=== PATIENT | female | born 1970 | race Caucasian/White ===

== ENCOUNTER → 2018-01-12 16:34 | Outpatient (CLI) | payer OTHER, SELFPAY ==
[2018-01-12 17:49] LABS: Hematocrit 41.7 % (37-47); Hemoglobin 14.8 g/dl (12.0-15.0); Mean Corp Hgb Conc 35.5 g/gl (32-36); Mean Corpuscular Hgb 30.4 pg (27.0-32.0); Mean Corpuscular Volume 85.6 fL (81-99); Mean Platelet Vol. 9.8 fl (6.2-12.0); Platelet Count 451 K/mm3 (150-450); RBC Distribution Width CV 13.1 % (11.6-14.6); RBC Distribution Width SD 40.5 fl (35.1-43.9); Red Blood Count 4.87 M/mm3 (4.2-5.4); Scan Indicated on CBC? Y/N NO; White Blood Count 8.4 K/mm3 (4.4-11.0)
[2018-01-12 18:07] LABS: Thyroid Stim Hormone (TSH) 1.85 uIU/mL (0.358-3.74)
== END ==
PROVIDERS: Visit Provider Obstetrics & Gynecology
DX: N93.9 Abnormal uterine and vaginal bleeding, unspecified (principal)
CPT/HCPCS: 36415; 84443; 85027

== ENCOUNTER → 2018-02-05 16:28 | Outpatient (CLI) | payer OTHER, SELFPAY ==
[2018-02-13 08:45] LABS: HPV HC, High Risk Negative (Negative)
[2018-02-13 08:47] LABS: HPV Reflexed? YES, CHARGE PATIENT
== END ==
PROVIDERS: Visit Provider Obstetrics & Gynecology
DX: Z12.4 Encounter for screening for malignant neoplasm of cervix (principal)
CPT/HCPCS: 87624; 88175; G0145

== ENCOUNTER → 2018-04-16 10:49 | Outpatient (CLI) | payer OTHER, SELFPAY ==
--- NOTE | 2018-04-16 | BI_ITS ---
MAMMOGRAPHY - BILATERAL SCREENING REASON FOR EXAM: Female, 48 years old. Routine annual screening examination. PERTINENT HISTORY: Non-contributory. TECHNIQUE: Digital bilateral breast joel (3D mammographic acquisition) in the CC and MLO projections. 2-D mediolateral oblique (MLO) and craniocaudad (CC) views of both breasts were obtained. CAD: Full Field Digital Mammography with Computer Added Detection was performed. COMPARISON: Comparison is made with prior study dated June 08, 2014 and May 02, 2013. FINDINGS: Breast Composition: The breasts are heterogeneously dense, which may obscure small masses. There are no dominant masses or suspicious calcifications. No other significant abnormalities are identified. There has been no significant change since the prior study. BI/SCREENING MAMM (CAD), BILAT IMPRESSION: Stable bilateral screening mammogram. Yearly follow-up mammogram recommended. (A) ASSESSMENT CATEGORY: BIRADS Category 1: Negative. A letter regarding these results will be sent to the patient by the facility within 30 days. Approximately 10% of breast cancers are not detected by mammography. A normal mammogram should not delay biopsy of a clinically suspicious abnormality. [id number] Electronically Signed: Abhijeet Franks MD at 8:40 EDT Tel [phone], Service support ,
== END ==
PROVIDERS: Family Provider Family Medicine; PCP Family Medicine; Visit Provider Obstetrics & Gynecology
DX: Z12.31 Encounter for screening mammogram for malignant neoplasm of breast (principal)
CPT/HCPCS: 77063; 77067

== ENCOUNTER → 2018-10-18 16:06 | Outpatient (CLI) | payer OTHER, SELFPAY ==
[2018-10-18 18:12] LABS: Hematocrit 41.6 % (37-47); Hemoglobin 14.3 g/dl (12.0-15.0); Mean Corp Hgb Conc 34.4 g/gl (32-36); Mean Corpuscular Volume 87.2 fL (81-99); Mean Platelet Vol. 9.9 fl (6.2-12.0); Platelet Count 449 K/mm3 (150-450); RBC Distribution Width CV 13.1 % (11.6-14.6); RBC Distribution Width SD 40.9 fl (35.1-43.9); Red Blood Count 4.77 M/mm3 (4.2-5.4); White Blood Count 8.6 K/mm3 (4.4-11.0)
[2018-10-18 18:19] LABS: Scan Indicated on CBC? Y/N NO
[2018-10-18 18:25] LABS: Follicle Stimulating Hormone 18.6 mIU/mL; Thyroid Stim Hormone (TSH) 2.06 uIU/mL (0.358-3.74)
--- OUTSIDE RECORDS SUMMARY | 2019-01-20 08:56 | XMS RPT_ITS ---
:1970 Author Organization OHIP Care Team Providers Name Role Phone STEPHIE PITTS (TURNER MACHINE OPERATOR) Attending Unavailable KENDALL CUNHA III Attending Unavailable DEBRA ZHOU (GASKET MAKER) Attending Unavailable STEPHIE PITTS (TURNER MACHINE OPERATOR) Referring Unavailable STEPHIE PITTS (TURNER MACHINE OPERATOR) Attending Unavailable KENDALL CUNHA III Referring Unavailable STEPHIE PITTS (TURNER MACHINE OPERATOR) Referring Unavailable Leah Contreras Attending Unavailable Leah Contreras Attending Unavailable Leah Contreras Attending Unavailable Leah Contreras Attending Unavailable Kendall Cunha III Primary Care Unavailable PROBLEMS PROBLEMS DATE TYPE CONDITION / CODE ATTENDING STATUS SOURCE 10/18/2018 Unknown N92.4 - Excessive Leah Contreras Active [facility] bleeding in the Community premenopausal Hospital period / Repository N92.4(ICD-10) 10/18/2018 Unknown N92.6 - Irregular Leah Contreras Active [facility] menstruation, Community unspecified / Hospital N92.6(ICD-10) Repository 04/16/2018 Active Cough / R05(ICD-10) NA Active [facility] [place] Repository 04/16/2018 Active Glycosuria / NA Active [facility] R81(ICD-10) [facility] [place] Repository 02/05/2018 Unknown Z12.4 - Encounter Leah Contreras Active [facility] for screening for Community malignant neoplasm Hospital of cervix / Repository Z12.4(ICD-10) 2018 Unknown N93.9 - Abnormal Leah Contreras Active [facility] uterine and vaginal Community bleeding, Hospital unspecified / Repository N93.9(ICD-10) PROCEDURES PROCEDURES No Procedure Records FoundRESULTS RESULTS CBC-COMPLETE BLOOD CNT Collected: 10/18/2018 Status: F Source: [place] NO DIFF 4:10 PM [facility] TYPE CODE TESTS RESULT OUT OF RANGE REFERENCE UNITS LAB L100.1000 4.4-11.0 K/mm3 Normal WBC 8.6 LAB L100.1200 4.2-5.4 M/mm3 Normal RBC 4.77 LAB L100.1300 12.0-15.0 g/dl Normal HGB 14.3 LAB L100.1400 37-47 % Normal HCT 41.6 LAB L100.1500 81-99 fL Normal MCV 87.2 LAB L100.1600 27.0-32.0 pg Normal MCH 30.0 LAB L100.1700 32-36 g/gl Normal MCHC 34.4 LAB L100.1810 11.6-14.6 % Normal RDW CV 13.1 LAB L100.1820 35.1-43.9 fl Normal RDW SD 40.9 LAB L100.1900 150-450 K/mm3 Normal PLT 449 LAB L100.2000 6.2-12.0 fl Normal MPV 9.9 Performed By: #### L100.0500 #### [facility] [address] [place], [address] THYROID STIM HORMONE Collected: 10/18/2018 Status: F Source: [place] (TSH) 4:10 PM [facility] REPOSITORY TYPE CODE TESTS RESULT OUT OF RANGE REFERENCE UNITS LAB L501.9520 0.358-3.74 uIU/mL Normal TSH 2.06 Performed By: #### L501.9520, L3100.5125 #### [facility] [address] [place], [address] FOLLICLE STIMULATING Collected: 10/18/2018 Status: F Source: [place] HORMONE 4:10 PM [facility] REPOSITORY TYPE CODE TESTS RESULT OUT OF RANGE REFERENCE UNITS LAB L3100.5125 mIU/mL Normal FSH 18.6 Result Comment: NORMAL REFERENCE RANGES FEMALE FOLLICULAR 2.3 - 12.6 mIU/mL MID-CYCLE PEAK 5.2 - 17.5 mIU/mL LUTEAL 1.7 - 12.9 mIU/mL POST-MENOPAUSAL ON MHT 5.9 - 72.8 mIU/mL NOT ON MHT 12.7 - 132.2 mlU/mL MALE 0.7 - 10.8 mIU/mL NEW TEST METHOD AND REFERENCE RANGES MARCH 22, 2012 Performed By: #### L501.9520, L3100.5125 #### [facility] [address] [place], [address] XR CHEST 2V FRONTAL/LAT Observed: 04/16/2018 Status: F Source: [place] 2:30 PM [facility] REPOSITORY * * *Final Report* * * DATE OF EXAM: Apr 16 2018 2:30PM [id number] [id number] - XR CHEST 2V FRONTAL/LAT / PROCEDURE REASON: Cough * * * * Physician Interpretation * * * * EXAMINATION: CHEST RADIOGRAPH (2 VIEW FRONTAL and LATERAL) Clinical History: Cough MQ: XC2_5 Comparison: RESULT: Lines, tubes, and devices: None. Lungs and pleura: No consolidation. No lung mass. No pleural effusion. Cardiomediastinal silhouette: Normal cardiomediastinal silhouette. Other: . IMPRESSION: No acute radiographic abnormality. Mapping Editor: PSCB Transcribe Date/Time: Apr 16 2018 4:46P Dictated by : ZAYNAB BEAN MD This examination was interpreted and the report reviewed and electronically signed by: ZAYNAB BEAN MD on Apr 16 2018 4:46PM EST [id number] Observed: 04/16/2018 Status: COMPLETED Source: [place] 2:19 PM [facility] REPOSITORY HNO ID: [id number] Author: Leslee Huang Service: (none) Author Type: (none) Type: Progress Notes Filed: 04/16/2018 2:30 PM Note Text: Radiology Service Progress Note PATIENT NAME: Kitty Rodney DATE OF SERVICE: April 16, 2018 TIME: 2:19 PM PATIENT IDENTITY VERIFICATION COMPLETED USING TWO (2) METHODS: Patient confirmed name verbally and Date of . PATIENT GENDER DATA: Female. status: : No status: NO. PATIENT RELEVANT IMPLANT DATA REVIEWED: Not Applicable RADIOLOGY DEPARTMENT: General X-ray: Exam(s) Completed: Chest X-Ray PERIPHERAL IV DATA: Not applicable SIGNED BY: Leslee Huang April 16, 2018 2:19 PM PROGRESS Observed: 04/16/2018 Status: COMPLETED Source: [place] 1:31 PM [facility] REPOSITORY HNO ID: [id number] Author: Stephie Leslie (Scott Pitts Service: (none) Author Type: Nurse Practitioner Type: Progress Notes Filed: 04/16/2018 1:53 PM Note Text: Chief Complaint Patient presents with: Recheck: had glucose in urine at Urgent Care HPI Kitty Rodney is a 48 year old female who presents here today for Above Complaints. Seen 03/26/18 for possible UTI, urine dip that day showed Glucose in urine. POC fingerstick non-fasting was 145. She has had fasting labs done this morning, results still pending. She denies any polyuria/polydipsia. Recalls day of UC visit poor choices of foods. Denies h/o elevated blood sugar. Also notes ongoing cough. Dry, rarely productive-clear mucus.. Onset 4 months ago, happens every year. Started with URI at onset, no lingering cough. Usually has lingering cough, typically gone by now. Some PND, no significant rhinorrhea. She notes + GERD sx and denies any wheezing. + cough typically with cold weather or with exercise. No formal DX of asthma. Not treated. The ROS is otherwise negative. Past medical history, appointments, medications, allergies reviewed. Patient Allergies ALLERGIES Allergen Reactions - Cipro [Ciprofloxaci* Hives - Sulfa (Sulfonamide * Hives Current Medications Current Outpatient Prescriptions on File Prior to Visit: acetaminophen 325 mg-caffeine 40 mg-butalbital 50 mg (FIORICET) per tablet Take 1 tablet by mouth every 6 hrs . as needed for migraine headache tiZANidine (ZANAFLEX) 4 mg tablet Take 0.5 tablets by mouth every 6 hours as needed (muscle spasms). predniSONE (DELTASONE) 20 mg tablet Take 1 tablet by mouth once daily. buPROPion XL (WELLBUTRIN XL) 150 mg 24 hr tablet Take 1 tablet by mouth once daily. No current facility-administered medications on file prior to visit. Previous Medical History PAST MEDICAL HISTORY Diagnosis Date - Dysthymic disorder 1996 Depression (non-psychotic)/ANXIETY - Exercise-induced asthma 09/21/2015 - Female infertility of unspecified origin 2007 Female infertility - Migraine headache 01/10/2011 - Migraine with aura and without status migrainosus, not intractable 09/21/2015 - Personal history of urinary (tract) infection - Personal history of urinary calculi - Rosacea 07/23/2011 - Unspecified asthma(493.90) EXERCISE INDUCED - Variants of migraine, not elsewhere classified, with intractable migraine, so stated, without mention of status migrainosus Previous Surgical History PAST SURGICAL HISTORY Procedure Laterality Date - DELIVERY ONLY 08/2009 , low transverse - EGD W/O BRSH SPECIMEN W/BX 12/12/2016 - G-ESOPH REFLX TST W/ELECTROD 12/12/2016 - HYSTEROSALPINGOGRAM CATHANDINSTILL Family History FAMILY HISTORY Problem Relation Age of Onset - Lipids Mother High Cholesterol - Diabetes Father - Stroke Father - Heart Maternal Grandmother - Stroke Maternal Grandmother - Diabetes Paternal Grandmother - Stroke Paternal Grandfather - Cancer Maternal Aunt BONE CANCER Social History Social History Marital status: Spouse name: Leonid Years of education: 16 Number of children: 1 Occupational History 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 Nose/Sinuses: Nares normal, septum midline, mucosa normal, no drainage or sinus tenderness. Oropharynx: Lips, mucosa, and tongue normal, teeth and gums normal, oropharynx normal. Neck: Supple, no adenopathy; thyroid symmetric, normal size, no bruits. Lungs: Lungs clear to auscultation. No wheezing, rhonchi, rales. Heart: RRR without murmur, gallop, or rubs. No ectopy. Component Latest Ref Rng AND Units 04/16/2018 Glucose, Urine Neg mg/dL neg Bilirubin, Urine Neg neg Ketones, Urine Neg neg Specific [place], Ur 1.005 - 1.030 1.010 Hemoglobin/Blood,Ur Neg large pH, Urine 4.5 - 8.0 7.0 Protein, Urine Neg mg/dL trace Urobilinogen, Urine Normal (<1.1) EU normal Nitrites Neg neg Leukocytes Neg neg Color/Appearance comment: yellow/clear Quality Check yes/no Yes ASSESSMENT/PLAN: 1. Glucosuria - ICD9: 791.5, ICD10: R81 (primary diagnosis) Reviewed diagnostic criteria for DM. Will await lab results and notify when available and be guided by results. Recommend healthy diet, low starchy vegetables, lean protein sources - UA DIP B/O 2. Cough - ICD9: 786.2, ICD10: R05 -Meantime recommend Loratidine 10 mg daily. - XR CHEST 2V FRONTAL/LAT Stephie Pitts, MSN BRANCH LIBRARY CLERK.GASKET MAKER CNOV Observed: 04/16/2018 Status: COMPLETED Source: [place] 1:20 PM [facility] REPOSITORY Office Visit (FAMPWS) KITTY SAMAYOA ([id number]) 1970 F Date Time Provider Department 04/16/18 1:20 PM STEPHIE PITTS (TURNER MACHINE OPERATOR) RUFINOPWS During your visit today, we recorded the following information about you: Temperature Pulse Respiration Blood pressure 98.3 degrees 88/minute 18/minute 118/80 Last Period 04/11/18 Stephie Pitts, MSN BRANCH LIBRARY CLERK.GASKET MAKER 04/16/2018 1:53 PM Signed Chief Complaint Patient presents with: Recheck: had glucose in urine at Urgent Care HPI Kitty Rodney is a 48 year old female who presents here today for Above Complaints. Seen 03/26/18 UC for possible UTI, urine dip that day showed Glucose in urine. POC fingerstick non-fasting was 145. She has had fasting labs done this morning, results still pending. She denies any polyuria/polydipsia. Recalls day of UC visit poor choices of foods. Denies h/o elevated blood sugar. Also notes ongoing cough. Dry, rarely productive-clear mucus.. Onset 4 months ago, happens every year. Started with URI at onset, no lingering cough. Usually has lingering cough, typically gone by now. Some PND, no significant rhinorrhea. She notes + GERD sx and denies any wheezing. + cough typically with cold weather or with exercise. No formal DX of asthma. Not treated. The ROS is otherwise negative. Past medical history, appointments, medications, allergies reviewed. Patient Allergies ALLERGIES Allergen Reactions - Cipro [Ciprofloxaci* Hives - Sulfa (Sulfonamide * Hives Current Medications Current Outpatient Prescriptions on File Prior to Visit: acetaminophen 325 mg-caffeine 40 mg-butalbital 50 mg (FIORICET) per tablet Take 1 tablet by mouth every 6 hrs . as needed for migraine headache tiZANidine (ZANAFLEX) 4 mg tablet Take 0.5 tablets by mouth every 6 hours as needed (muscle spasms). predniSONE (DELTASONE) 20 mg tablet Take 1 tablet by mouth once daily. buPROPion XL (WELLBUTRIN XL) 150 mg 24 hr tablet Take 1 tablet by mouth once daily. No current facility-administered medications on file prior to visit. Previous Medical History PAST MEDICAL HISTORY Diagnosis Date - Dysthymic disorder 1996 Depression (non-psychotic)/ANXIETY - Exercise-induced asthma 09/21/2015 - Female infertility of unspecified origin 2007 Female infertility - Migraine headache 01/10/2011 - Migraine with aura and without status migrainosus, not intractable 09/21/2015 - Personal history of urinary (tract) infection - Personal history of urinary calculi - Rosacea 07/23/2011 - Unspecified asthma(493.90) EXERCISE INDUCED - Variants of migraine, not elsewhere classified, with intractable migraine, so stated, without mention of status migrainosus Previous Surgical History PAST SURGICAL HISTORY Procedure Laterality Date - DELIVERY ONLY 08/2009 , low transverse - EGD W/O BRSH SPECIMEN W/BX 12/12/2016 - G-ESOPH REFLX TST W/ELECTROD 12/12/2016 - HYSTEROSALPINGOGRAM CATHANDINSTILL Family History FAMILY HISTORY Problem Relation Age of Onset - Lipids Mother High Cholesterol - Diabetes Father - Stroke Father - Heart Maternal Grandmother - Stroke Maternal Grandmother - Diabetes Paternal Grandmother - Stroke Paternal Grandfather - Cancer Maternal Aunt BONE CANCER Social History Social History Marital status: Spouse name: Leonid Years of education: 16 Number of children: 1 Occupational History 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 Nose/Sinuses: Nares normal, septum midline, mucosa normal, no drainage or sinus tenderness. Oropharynx: Lips, mucosa, and tongue normal, teeth and gums normal, oropharynx normal. Neck: Supple, no adenopathy; thyroid symmetric, normal size, no bruits. Lungs: Lungs clear to auscultation. No wheezing, rhonchi, rales. Heart: RRR without murmur, gallop, or rubs. No ectopy. Component Latest Ref Rng AND Units 04/16/2018 Glucose, Urine Neg mg/dL neg Bilirubin, Urine Neg neg Ketones, Urine Neg neg Specific [place], Ur 1.005 - 1.030 1.010 Hemoglobin/Blood,Ur Neg large pH, Urine 4.5 - 8.0 7.0 Protein, Urine Neg mg/dL trace Urobilinogen, Urine Normal (<1.1) EU normal Nitrites Neg neg Leukocytes Neg neg Color/Appearance comment: yellow/clear Quality Check yes/no Yes ASSESSMENT/PLAN: 1. Glucosuria - ICD9: 791.5, ICD10: R81 (primary diagnosis) Reviewed diagnostic criteria for DM. Will await lab results and notify when available and be guided by results. Recommend healthy diet, low starchy vegetables, lean protein sources - UA DIP B/O 2. Cough - ICD9: 786.2, ICD10: R05 -Meantime recommend Loratidine 10 mg daily. - XR CHEST 2V FRONTAL/LAT Stephie Pitts, MSN BRANCH LIBRARY CLERK.GASKET MAKER Stephie Pitts, MSN BRANCH LIBRARY CLERK.GASKET MAKER 04/16/2018 1:49 PM Signed 1. Recommend Loratidine 10 mg daily. Referring Provider: KENDALL CUNHA III [[id number]] Allergies As of Date: 04/16/2018 Noted Allergy Reaction CIPRO (CIPROFLOXACIN) 08/11/2005 4 - Hives SULFA (SULFONAMIDE ANTIBIOTICS) 08/11/2005 4 - Hives Date Reviewed: 04/16/2018 Reviewed by: Kenyetta Jamil LPN - Fully Assessed Reason for Visit: Recheck [92] Cmt: had glucose in urine at Urgent Care Primary Visit Diagnosis:Glucosuria [R81] Other Visit Diagnosis:Cough [R05] Order(s):UA DIP B/O [[id number]] Order #: [id number] XR CHEST 2V FRONTAL/LAT [[id number]] Order #: [id number] FUTURE Prescriptions as of 04/16/2018 Sig: [id number]* Take 1 tablet by mouth every * Medication notes this encounter BUPROPION XL 150 MG TAB >> Stephie Pitts, MSN BRANCH LIBRARY CLERK.GASKET MAKER 04/16/2018 1:45 PM very irritable Problem List As Of Date 04/16/2018 Noted Resolved DYSMETABOLIC SYNDROME X [E88.81] INVALID FOR* GENERALIZED ANXIETY DIS [F41.1] INVALID FOR* Sprain and strain of unspecified site of should*INVALID FOR*09/21/2015 Pain in joint, lower leg [M25.569] INVALID FOR*09/21/2015 Supervision of other normal [Z34.80] INVALID FOR*09/21/2015 Elderly multigravida with antepartum condition *INVALID FOR*09/21/2015 Threatened , antepartum [O20.0] INVALID FOR*09/21/2015 Rosacea [L71.9] INVALID FOR*09/21/2015 Fracture of 5th metatarsal [S92.353A] INVALID FOR*09/21/2015 Neck pain [M54.2] INVALID FOR*09/21/2015 More... Migraine with aura and without status migrainos*INVALID FOR* Exercise-induced asthma [J45.990] INVALID FOR* Odynophagia [R13.10] INVALID FOR* Anxiety and depression [F41.9, F32.9] INVALID FOR* Other instructions from your clinician: 1. Recommend Loratidine 10 mg daily. Medications Discontinued During This Encounter tiZANidine (ZANAFLEX) 4 mg tablet 30 t* 0 02/03/2018 04/16/2018 Route: ORAL Sig: Take 0.5 tablets by mouth every 6 hours as needed (muscle spasms). Disc: Course of therapy completed predniSONE (DELTASONE) 20 mg tablet 5 ta* 0 02/03/2018 04/16/2018 Route: ORAL Sig: Take 1 tablet by mouth once daily. Disc: Course of therapy completed buPROPion XL (WELLBUTRIN XL) 150 mg * 30 t* 11 12/21/2017 04/16/2018 Route: ORAL Sig: Take 1 tablet by mouth once daily. Disc: Discontinued by Patient Disposition: Return if symptoms worsen or fail to improve. Follow-up and Disposition History Recorded Encounter Status:Closed by STEPHIE PTITS CNP on 04/16/18 SCREENING MAMM (CAD), Observed: 04/16/2018 Status: F Source: [place] 10:52 AM [facility] REPOSITORY [facility] Imaging Services [address] [place] [id number] SCREENING MAMM (CAD), BILAT MR#: [id number] Acct: [id number] Name: KITTY SAMAYOA Rep #: [id number] : 1970 F 48 From: Abhijeet Franks MD PCP: Kendall Cunha III, MD Status: REG CLI Study: SCREENING MAMM (CAD), BILAT Date of Exam: 04/16/18 Exam# [id number] Ordering Dr: Leah Contreras MD MAMMOGRAPHY - BILATERAL SCREENING REASON FOR EXAM: Female, 48 years old. Routine annual screening examination. PERTINENT HISTORY: Non-contributory. TECHNIQUE: Digital bilateral breast joel (3D mammographic acquisition) in the CC and MLO projections. 2-D mediolateral oblique (MLO) and craniocaudad (CC) views of both breasts were obtained. CAD: Full Field Digital Mammography with Computer Added Detection was performed. COMPARISON: Comparison is made with prior study dated June 08, 2014 and May 02, 2013. FINDINGS: Breast Composition: The breasts are heterogeneously dense, which may obscure small masses. There are no dominant masses or suspicious calcifications. No other significant abnormalities are identified. There has been no significant change since the prior study. BI/SCREENING MAMM (CAD), BILAT IMPRESSION: Stable bilateral screening mammogram. Yearly follow-up mammogram recommended. (A) ASSESSMENT CATEGORY: BIRADS Category 1: Negative. A letter regarding these results will be sent to the patient by the facility within 30 days. Approximately 10% of breast cancers are not detected by mammography. A normal mammogram should not delay biopsy of a clinically suspicious abnormality. [id number] Electronically Signed: Abhijeet Franks MD at 8:40 EDT Tel [phone], Service support , CC: Leah Contreras MD; Kendall Cunha III, MD Mapping Editor: Signed COMP METABOLIC PANEL Collected: 04/16/2018 Status: F Source: [place] 10:16 AM [facility] REPOSITORY TYPE CODE TESTS RESULT OUT OF REFERENCE UNITS RANGE LAB TP 6.3-8.0 g/dL Low Protein, Total 5.8 LAB ALB 3.9-4.9 g/dL Albumin 4.0 LAB CA 8.5-10.2 mg/dL Calcium, Total 9.2 LAB TBIL 0.2-1.3 mg/dL Bilirubin, Total 0.4 LAB ALKP 32-117 U/L Alkaline Phosphatase 69 LAB AST 13-35 U/L AST 21 LAB GLU 74-99 mg/dL Glucose High 100 Result Comment: The [place] Diabetes Association (ADA) provides guidance for cutoff values for fasting glucose and random glucose. The ADA defines fasting as no caloric intake for at least 8 hours. Fas ting plasma glucose results between 100 to 125 mg/dL indicate increased risk for diabetes (prediabetes). Fasting plasma glucose results greater than or equal to 126 mg/dL meet the criteria for diagnosis of diabetes. In the absence of unequivocal hyperglycemia, results should be confirmed by repeat testing. In a patient with classic symptoms of hyperglycemia or hyperglycemic crisis, random plasma glucose results greater than or equal to 200 mg/dL meet the criteria for diagnosis of diabetes. Reference: Standards of Medical Care in Diabetes 2016, [place] Diabetes Association. Diabetes Care. 2016.39(Suppl 1). LAB BUN 7-21 mg/dL BUN 14 LAB CRET 0.58-0.96 mg/dL Creatinine 0.77 LAB NA 136-144 mmol/L Sodium 140 LAB K 3.7-5.1 mmol/L Potassium 4.0 LAB CL 97-105 mmol/L Chloride 103 LAB CO2 22-30 mmol/L CO2 25 LAB AGAP 9-18 mmol/L Anion Gap 12 LAB ALT 7-38 U/L ALT 12 LAB GFRAA eGFR- Amer. >60 LAB GFRNAA . eGFR-All Other Races >60 Result Comment: eGFR (Estimated GFR) Units of measure: mL/min/1.73 meters squared eGFR is derived from the reexpressed MDRD Study equation using the following parameters: serum creatinine, age, gender and race. The creatinine assay has been calibrated to be traceable to IDMS. An eGFR <60 mL/min/1.73m2 for >3 months is consistent with chronic kidney disease. Refer to KDOQI guidelines for clinical interpretation. In patients with unstable renal function, e.g. those with acute kidney injury, the eGFR may not accurately reflect actual GFR. Performed By: #### CMP, LIPB, TSH, HBA1C #### [facility] [address] [place], [place] [address] LIPID PANEL, BASIC Collected: 04/16/2018 Status: F Source: [place] 10:16 AM [facility] REPOSITORY TYPE CODE TESTS RESULT OUT OF REFERENCE UNITS RANGE LAB CHOL <200 mg/dL Cholesterol 176 Result Comment: <200 mg/dL, Desirable 200-239 mg/dL, Borderline high >239 mg/dL, High LAB TRIGLY <150 mg/dL Triglyceride 117 Result Comment: <150 mg/dL, Normal 150-199 mg/dL, Borderline high 200-499 mg/dL, High >499 mg/dL, Very high LAB HDL >39 mg/dL HDL-Cholesterol 50 Result Comment: 40-59 mg/dL, Acceptable >59 mg/dL, High: Negative risk factor for coronary heart disease <40 mg/dL, Low: Positive risk factor for coronary heart disease LAB LDL <100 mg/dL LDL-Cholesterol High 103 Result Comment: <100 mg/dL, Optimal 100-129 mg/dL, Near optimal/above optimal 130-159 mg/dL, Borderline high 160-189 mg/dL, High >189 mg/dL, Very high Secondary prevention optimal LDL Cholesterol levels are recommended to be < 70 mg/dL LAB NONHDL <130 mg/dL Non HDL Cholesterol 126 Result Comment: <130 mg/dL, Optimal 130-159 mg/dL, Near optimal/above optimal 160-189 mg/dL, Borderline high 190-219 mg/dL, High >219 mg/dL, Very high Secondary prevention optimal non HDL Cholesterol levels are recommended to be < 100 mg/dL LAB FT hrs Fasting Time 14 LAB VLDL <30 mg/dL VLDL Cholesterol 23 LAB TCHDL <5.10 TC:HDL Ratio 3.52 LAB LDLHDL <2.54 LDL:HDL Ratio 2.06 Result Comment: Reference: 1. National Cholesterol Education Program ATP III Guideline At-A-Glance Quick Desk Reference: National Heart, Lung, and Blood [place]. National Institutes of Health. 2001: NIH Publication No. 01-3305. 2. An International Atherosclerosis Society position paper: global recommendations for the management of dyslipidemia: executive summary, Atherosclerosis. 2014: 232(2):410-413. Performed By: #### CMP, LIPB, TSH, HBA1C #### [facility] [address] [place], [place] [address] TSH Collected: 04/16/2018 Status: F Source: [place] 10:16 AM [facility] REPOSITORY TYPE CODE TESTS RESULT OUT OF RANGE REFERENCE UNITS LAB TSH 0.400-5.500 uU/mL TSH 2.130 Result Comment: If the patient is , TSH reference range varies by gestational period: First Trimester 0.100-2.500 uU/mL Second Trimester 0.200-3.000 uU/mL Third Trimester 0.300-3.000 uU/mL References: 1. Stewart L, Carlos M, Raúl EK, et al. Management of Thyroid Dysfunction during and : An Endocrine Society Clinical Practice Guideline. J Clin Endocrinol Metab, 2012:97:2917-1056. 2. Aniket OJEDA. Overview of thyroid disease in . UpToDate. 2016. Accessed on April 18, 2016. Performed By: #### CMP, LIPB, TSH, HBA1C #### [facility] [address], [place] [address] HEMOGLOBIN A1C Collected: 04/16/2018 Status: F Source: [place] 10:16 AM [facility] REPOSITORY TYPE CODE TESTS RESULT OUT OF REFERENCE UNITS RANGE LAB HGBA1C 4.3-5.6 % Hemoglobin A1c 5.3 LAB HBA0 mg/dL Est. Average Glucose 105 Result Comment: eAG: (Estimated average glucose) is a calculated value from HgbA1c and is new accounts banking representative of the average blood glucose level in the last 2-3 month period. Performed By: #### CMP, LIPB, TSH, HBA1C #### [facility] [address], [place] [id number] Observed: 03/26/2018 Status: F Source: [place] URINE CULTURE 6:25 PM [facility] REPOSITORY Sp. Request/Comment: - Best Practice Alert: To ensure optimal transport conditions and accurate culture results transfer urine specimens to thacker top C and S preservative tube. Culture Result - <10,000 CFU/ml Lactose negative gram negative bacilli --> ABNORMAL ALERT Insignificant colony count. No further workup. --> ABNORMAL ALERT 10,000 - <50,000 CFU/ml Normal urogenital angela Performed By: #### URCUL #### [facility] [address] [place], [place] [address] PROGRESS Observed: 03/26/2018 Status: COMPLETED Source: [place] 5:51 PM [facility] REPOSITORY HNO ID: [id number] Author: Suzie (Mo) Service: (none) Author Type: Nurse Practitioner Type: Progress Notes Filed: 03/26/2018 6:34 PM Note Text: Subjective HPI HPI Kitty Rodney is a 48 year old female who presents today for CC of urinary burning, urgency. This started 4 days ago. Has tried nothing nothing. Symptoms are worsened by nothing. Risk factors hx of uti's. .Patient presents with: UTI PAST MEDICAL HISTORY Diagnosis Date - Dysthymic disorder 1996 Depression (non-psychotic)/ANXIETY - Exercise-induced asthma 09/21/2015 - Female infertility of unspecified origin 2007 Female infertility - Migraine headache 01/10/2011 - Migraine with aura and without status migrainosus, not intractable 09/21/2015 - Personal history of urinary (tract) infection - Personal history of urinary calculi - Rosacea 07/23/2011 - Unspecified asthma(493.90) EXERCISE INDUCED - Variants of migraine, not elsewhere classified, with intractable migraine, so stated, without mention of status migrainosus PAST SURGICAL HISTORY Procedure Laterality Date - DELIVERY ONLY 08/2009 , low transverse - [facility]X 12/12/2016 - G-ESOPH REFLX TST W/ELECTROD 12/12/2016 - HYSTEROSALPINGOGRAM CATHANDINSTILL ALLERGIES Cipro [Ciprofloxacin]; Sulfa (Sulfonamide Antibiotics) MEDICATIONS tiZANidine (ZANAFLEX) 4 mg tablet Take 0.5 tablets by mouth every 6 hours as needed (muscle spasms). predniSONE (DELTASONE) 20 mg tablet Take 1 tablet by mouth once daily. buPROPion XL (WELLBUTRIN XL) 150 mg 24 hr tablet Take 1 tablet by mouth once daily. acetaminophen 325 mg-caffeine 40 mg-butalbital 50 mg (FIORICET) per tablet Take 1 tablet by mouth every 6 hrs . as needed for migraine headache FAMILY HISTORY Problem Relation Age of Onset - Lipids Mother High Cholesterol - Diabetes Father - Stroke Father - Heart Maternal Grandmother - Stroke Maternal Grandmother - Diabetes Paternal Grandmother - Stroke Paternal Grandfather - Cancer Maternal Aunt BONE CANCER Social History Substance Use Topics - Smoking status: Never Smoker - Smokeless tobacco: Never Used - Alcohol use No Review of Systems Constitutional: Negative for chills, fever and weight loss. Respiratory: Negative for cough, shortness of breath and wheezing. Cardiovascular: Negative for chest pain and palpitations. Gastrointestinal: Negative for abdominal pain, blood in stool, constipation, diarrhea, heartburn, melena, nausea and vomiting. Genitourinary: Positive for dysuria, frequency and urgency. Negative for flank pain and hematuria. Objective Blood pressure 110/72, pulse 84, temperature 36.4 ?C (97.6 ?F), temperature source Left Tympanic, resp. rate 18. Physical Exam Constitutional: She is well-developed, well-nourished, and in no distress. Non-toxic appearance. She does not have a sickly appearance. No distress. Cardiovascular: Normal rate, regular rhythm and normal heart sounds. Pulmonary/Chest: Effort normal and breath sounds normal. Abdominal: Soft. Normal appearance and bowel sounds are normal. There is no hepatosplenomegaly. There is no tenderness. There is no CVA tenderness. Skin: Skin is warm and dry. ASSESSMENT/PLAN: 1. Dysuria - ICD9: 788.1, ICD10: R30.0 (primary diagnosis) acute - Send urine for culture, will call results and treat if indicated -push fluids - UA DIP B/O - URINE CULTURE 2. Glucosuria - ICD9: 791.5, ICD10: R81 -schedule follow up with primary care next week -discussed concerns for insulin resistance, strongly encouraged f/u with pcp. -Random glucose 145 Prescription instructions reviewed with patient as applicable. Patient advised if symptoms do not improve or if symptoms worsen sooner, to contact the office for further evaluation by their primary care physician. Potential red flag symptoms discussed with the patient. Reviewed appropriate action plan to take if red flag symptoms occur. Patient agreeable to treatment plan. Suzie Cano APRN.CNP CNOV Observed: 03/26/2018 Status: COMPLETED Source: [place] 5:45 PM [facility] REPOSITORY Office Visit ([facility]) DINA RODNEYKITTY D ([id number]) 1970 F Date Time Provider Department 03/26/18 5:45 PM SUZIE CANO (MO) [facility] During your visit today, we recorded the following information about you: Temperature Pulse Respiration Blood pressure 97.6 degrees 84/minute 18/minute 110/72 Suzie Cano APRN.CNP 03/26/2018 6:34 PM Signed Subjective HPI HPI Kitty Rodney is a 48 year old female who presents today for CC of urinary burning, urgency. This started 4 days ago. Has tried nothing nothing. Symptoms are worsened by nothing. Risk factors hx of uti's. .Patient presents with: UTI PAST MEDICAL HISTORY Diagnosis Date - Dysthymic disorder 1996 Depression (non-psychotic)/ANXIETY - Exercise-induced asthma 09/21/2015 - Female infertility of unspecified origin 2007 Female infertility - Migraine headache 01/10/2011 - Migraine with aura and without status migrainosus, not intractable 09/21/2015 - Personal history of urinary (tract) infection - Personal history of urinary calculi - Rosacea 07/23/2011 - Unspecified asthma(493.90) EXERCISE INDUCED - Variants of migraine, not elsewhere classified, with intractable migraine, so stated, without mention of status migrainosus PAST SURGICAL HISTORY Procedure Laterality Date - DELIVERY ONLY 08/2009 , low transverse - EGD W/O [facility] SPECIMEN W/BX 12/12/2016 - G-ESOPH REFLX TST W/ELECTROD 12/12/2016 - HYSTEROSALPINGOGRAM CATHANDINSTILL ALLERGIES Cipro [Ciprofloxacin]; Sulfa (Sulfonamide Antibiotics) MEDICATIONS tiZANidine (ZANAFLEX) 4 mg tablet Take 0.5 tablets by mouth every 6 hours as needed (muscle spasms). predniSONE (DELTASONE) 20 mg tablet Take 1 tablet by mouth once daily. buPROPion XL (WELLBUTRIN XL) 150 mg 24 hr tablet Take 1 tablet by mouth once daily. acetaminophen 325 mg-caffeine 40 mg-butalbital 50 mg (FIORICET) per tablet Take 1 tablet by mouth every 6 hrs . as needed for migraine headache FAMILY HISTORY Problem Relation Age of Onset - Lipids Mother High Cholesterol - Diabetes Father - Stroke Father - Heart Maternal Grandmother - Stroke Maternal Grandmother - Diabetes Paternal Grandmother - Stroke Paternal Grandfather - Cancer Maternal Aunt BONE CANCER Social History Substance Use Topics - Smoking status: Never Smoker - Smokeless tobacco: Never Used - Alcohol use No Review of Systems Constitutional: Negative for chills, fever and weight loss. Respiratory: Negative for cough, shortness of breath and wheezing. Cardiovascular: Negative for chest pain and palpitations. Gastrointestinal: Negative for abdominal pain, blood in stool, constipation, diarrhea, heartburn, melena, nausea and vomiting. Genitourinary: Positive for dysuria, frequency and urgency. Negative for flank pain and hematuria. Objective Blood pressure 110/72, pulse 84, temperature 36.4 ?C (97.6 ?F), temperature source Left Tympanic, resp. rate 18. Physical Exam Constitutional: She is well-developed, well-nourished, and in no distress. Non-toxic appearance. She does not have a sickly appearance. No distress. Cardiovascular: Normal rate, regular rhythm and normal heart sounds. Pulmonary/Chest: Effort normal and breath sounds normal. Abdominal: Soft. Normal appearance and bowel sounds are normal. There is no hepatosplenomegaly. There is no tenderness. There is no CVA tenderness. Skin: Skin is warm and dry. ASSESSMENT/PLAN: 1. Dysuria - ICD9: 788.1, ICD10: R30.0 (primary diagnosis) acute - Send urine for culture, will call results and treat if indicated -push fluids - UA DIP B/O - URINE CULTURE 2. Glucosuria - ICD9: 791.5, ICD10: R81 -schedule follow up with primary care next week -discussed concerns for insulin resistance, strongly encouraged f/u with pcp. -Random glucose 145 Prescription instructions reviewed with patient as applicable. Patient advised if symptoms do not improve or if symptoms worsen sooner, to contact the office for further evaluation by their primary care physician. Potential red flag symptoms discussed with the patient. Reviewed appropriate action plan to take if red flag symptoms occur. Patient agreeable to treatment plan. ESCOBAR Galaviz APRN.CNP 03/26/2018 6:06 PM Signed ASSESSMENT/PLAN: 1. Dysuria - ICD9: 788.1, ICD10: R30.0 (primary diagnosis) acute - Send urine for culture - Patient education for prevention given - UA DIP B/O - URINE CULTURE 2. Glucosuria - ICD9: 791.5, ICD10: R81 -schedule follow up with primary care next week Referring Provider: SELF [200] Allergies As of Date: 03/26/2018 Noted Allergy Reaction CIPRO (CIPROFLOXACIN) 08/11/2005 4 - Hives SULFA (SULFONAMIDE ANTIBIOTICS) 08/11/2005 4 - Hives Date Reviewed: 03/26/2018 Reviewed by: Suzie (Mo) - Fully Assessed Reason for Visit: UTI [116] Primary Visit Diagnosis:Dysuria [R30.0] Other Visit Diagnosis:Glucosuria [R81] Order(s):UA DIP B/O [0405652] Order #: [id number] URINE CULTURE [SQURCUL] Order #: [id number] GLUCOSE, BLOOD (POC) [5633301] Order #: [id number]. #:[id number] Prescriptions as of 03/26/2018 Sig: TIZANIDINE 4 MG TABLET Take 0.5 tablets by mouth tra* PREDNISONE 20 MG TABLET Take 1 tablet by mouth once d* BUPROPION XL 150 MG TAB Take 1 tablet by mouth once d* [id number]* Take 1 tablet by mouth every * Problem List As Of Date 03/26/2018 Noted Resolved DYSMETABOLIC SYNDROME X [E88.81] INVALID FOR* GENERALIZED ANXIETY DIS [F41.1] INVALID FOR* Sprain and strain of unspecified site of should*INVALID FOR*09/21/2015 Pain in joint, lower leg [M25.569] INVALID FOR*09/21/2015 Supervision of other normal [Z34.80] INVALID FOR*09/21/2015 Elderly multigravida with antepartum condition *INVALID FOR*09/21/2015 Threatened , antepartum [O20.0] INVALID FOR*09/21/2015 Rosacea [L71.9] INVALID FOR*09/21/2015 Fracture of 5th metatarsal [S92.353A] INVALID FOR*09/21/2015 Neck pain [M54.2] INVALID FOR*09/21/2015 More... Migraine with aura and without status migrainos*INVALID FOR* Exercise-induced asthma [J45.990] INVALID FOR* Odynophagia [R13.10] INVALID FOR* Anxiety and depression [F41.9, F32.9] INVALID FOR* Other instructions from your clinician: ASSESSMENT/PLAN: 1. Dysuria - ICD9: 788.1, ICD10: R30.0 (primary diagnosis) acute - Send urine for culture - Patient education for prevention given - UA DIP B/O - URINE CULTURE 2. Glucosuria - ICD9: 791.5, ICD10: R81 -schedule follow up with primary care next week Follow-up and Disposition History Recorded Encounter Status:Closed by SUZIE CANO CNP on 03/26/18 PAP I-G W/RFX HRHPV Collected: 02/05/2018 Status: F Source: [place] 2:10 PM [facility] REPOSITORY Order Comment: CYTOLOGY INFORMATION: - CLINICAL INFORMATION: - DATE LMP/MENOPAUSE: 01/29/18 LMP - COLLECTION VIAL: Thin Prep Vial - OIL HEAT TECHNICIAN SOURCE: CERVICAL/ENDOCERVICAL - COLLECTION TECHNIQUE: BRUSH/SPATULA Specimen Comment: [id number] Specimen Comment: No. of containers..01 ThinPrep Vial TYPE CODE TESTS RESULT OUT OF REFERENCE UNITS RANGE LAB L7400.0800 . High DIAGN Comment Result Comment: EPITHELIAL CELL ABNORMALITY. ATYPICAL SQUAMOUS CELLS OF UNDETERMINED SIGNIFICANCE. LAB L7400.0900 . Normal ADEQ Comment Result Comment: Satisfactory for evaluation. Endocervical and/or squamous metaplastic cells (endocervical component) are present. LAB L7400.1300 . High RECOMM Comment Result Comment: Suggest follow up as clinically appropriate. LAB L7400.1400 . Normal PERFORM Comment Result Comment: Primo Escudero, Credit Portfolio Manager (ASCP) LAB L7400.1700 . Normal SIGN Comment Result Comment: Jonathan Gunn MD, Pathologist LAB L7400.1720 . Normal Path prov. Comment ICD9 Result Comment: R87.610 LAB L7400.2575 . Normal TEST METHOD Comment Result Comment: This liquid based ThinPrep(R) pap test was screened with the use of an image guided system. LAB L7400.2600 . Normal . COMM LAB L7400.2700 . Normal PAPSMR Comment Result Comment: The Pap smear is a screening test designed to aid in the detection of premalignant and malignant conditions of the uterine cervix. It is not a diagnostic procedure and should not be used as the sole means of detecting cervical cancer. Both false-positive and false-negative reports do occur. LAB L7400.2800 . Normal HPV RFLX Comment Result Comment: See below for HPV testing results. LAB L7400.2900 Negative Normal HPV Negative HC,HGH RISK Result Comment: This high-risk HPV test detects thirteen high-risk types (16/18/31/33/35/39/45/51/52/56/58/59/68) without differentiation. Performed at: - [facility] [id number] Bullet Charging Machine Operator: Bailey Griffith MD, Phone: [phone] Performed at: = - [facility] [id number] Bullet Charging Machine Operator: Bailey Griffith MD, Phone: [phone] Performed By: #### L7400.0350 #### [facility] (refer to report for specific site) refer to report for address and phone number PROGRESS Observed: 02/03/2018 Status: COMPLETED Source: [place] 8:16 AM [facility] REPOSITORY HNO ID: [id number] Author: Debra (Abseiling Instructor) Podlogar Service: (none) Author Type: Nurse Practitioner Type: Progress Notes Filed: 02/03/2018 10:16 AM Note Text: 02/03/2018 Patient presents with: Back Pain: low back pain radiated down left leg , started about a week ago now. Did go to urgent care in [place] SUBJECTIVE: This is a 48 year old that is here today for Above Complaints. No known injury or trauma. Held a baby for about an hour and she also has been sitting in a car traveling. Did go to in [place] lst week and was given Zanaflex mg and diflonec 75 mg BID to take. Zanaflex is helping her to rest at night. ONSET: Thursday LOCATION:Left lower back down leg to above knee posteriorly DURATION: pretty constant CHARACTERISTICS: yesterday sharp..aches a lot. Denies numbness, tingling AGGRAVATING FEATURES: Everything ALLEVIATING FEATURES: a muscle relaxer tizanidine RADIATION: left leg posteriorly to ablove knee TIMIMG: Worse after being up for awhile Denies fever, chills, body aches, extremity numbness, tingling, bowel/bladder incontinent. Positive for muscle spasms and subjective weakness in left leg. No other home treatment No previous back problems or surgeries PAST MEDICAL HISTORY Diagnosis Date - Dysthymic disorder 1996 Depression (non-psychotic)/ANXIETY - Exercise-induced asthma 09/21/2015 - Female infertility of unspecified origin 2007 Female infertility - Migraine headache 01/10/2011 - Migraine with aura and without status migrainosus, not intractable 09/21/2015 - Personal history of urinary (tract) infection - Personal history of urinary calculi - Rosacea 07/23/2011 - Unspecified asthma(493.90) EXERCISE INDUCED - Variants of migraine, not elsewhere classified, with intractable migraine, so stated, without mention of status migrainosus ALLERGIES Cipro [Ciprofloxacin]; Sulfa (Sulfonamide Antibiotics) MEDICATIONS Current Outpatient Prescriptions: buPROPion XL (WELLBUTRIN XL) 150 mg 24 hr tablet Take 1 tablet by mouth once daily. acetaminophen 325 mg-caffeine 40 mg-butalbital 50 mg (FIORICET) per tablet Take 1 tablet by mouth every 6 hrs . as needed for migraine headache No current facility-administered medications for this visit. Medications and allergies reviewed by this provider. 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 OBJECTIVE: BP 112/64 (BP Site: Left Arm, BP Position: Sitting, BP Cuff Size: Large Adult) Pulse 60 Resp 18. Vital signs reviewed by this provider. APPEARANCE Well appearing, alert, in no acute distress, well-hydrated, well nourished. HEART RRR with normal S1 and S2, no murmurs, no gallops, no JVD appreciated LUNG clear to auscultation BACK: slight dec extension, mild pain to palpation in the LS spine left lower back. Negative SLR, negative findings: symmetric, no skin lesions, erythema, or scars, positive findings: limitation of motion - extension: mild EXTREMITIES Extremities normal, No deformities, No skin discoloration, No edema and Normal pulses bilaterally. NEURO Reflexes symmetrical, Normal gait, No involuntary motions. and negative findings: muscle tone normal, muscle strength normal, reflexes normal and symmetric ASSESSMENT/PLAN: 1. Low back pain radiating to lower extremity - ICD9: 724.2, ICD10: M54.5 (primary diagnosis) Sciatica - Ice for localized tenderness - Warm moist heat for 20 min three times a day - Prednisone burst- see orders - Muscle relaxant- see orders - Patient given instructions use of medications as ordered, intermittent rest, back care exercise program, improved posture, proper lifting techniques, intermittent use of heat and avoiding sleeping on a heating pad - Follow up in 2 weeks or sooner if symptoms persist or worsen 2. Screening for breast cancer - ICD9: V76.10, ICD10: Z12.31 - Encouraged monthly BSE - Follow up for annual exam in one year. - [facility] SCREENING Debra Podlogar, BRANCH LIBRARY CLERK.GASKET MAKER Prescription instructions reviewed with patient as applicable. Patient advised if symptoms do not improve or if symptoms worsen sooner, to contact their primary care physician. Potential red flag symptoms discussed with the patient. Reviewed appropriate action plan to take if red flag symptoms occur. Patient agreeable to treatment plan. ADRIANA Observed: 02/03/2018 Status: COMPLETED Source: [place] 8:00 AM [facility] REPOSITORY [facility] DINA RODNEYKITTY Ford ([id number]) 1970 F Date Time Provider Department 02/03/18 8:00 AM DEBRA ZHOU CNP During your visit today, we recorded the following information about you: Pulse Respiration Blood pressure 60/minute 18/minute 112/64 Debra Zhou APRN.CNP 02/03/2018 10:16 AM Signed 02/03/2018 Patient presents with: Back Pain: low back pain radiated down left leg , started about a week ago now. Did go to urgent care in [place] SUBJECTIVE: This is a 48 year old that is here today for Above Complaints. No known injury or trauma. Held a baby for about an hour and she also has been sitting in a car traveling. Did go to in [place] lst week and was given Zanaflex mg and diflonec 75 mg BID to take. Zanaflex is helping her to rest at night. ONSET: Thursday LOCATION:Left lower back down leg to above knee posteriorly DURATION: pretty constant CHARACTERISTICS: yesterday sharp..aches a lot. Denies numbness, tingling AGGRAVATING FEATURES: Everything ALLEVIATING FEATURES: a muscle relaxer tizanidine RADIATION: left leg posteriorly to ablove knee TIMIMG: Worse after being up for awhile Denies fever, chills, body aches, extremity numbness, tingling, bowel/bladder incontinent. Positive for muscle spasms and subjective weakness in left leg. No other home treatment No previous back problems or surgeries PAST MEDICAL HISTORY Diagnosis Date - Dysthymic disorder 1996 Depression (non-psychotic)/ANXIETY - Exercise-induced asthma 09/21/2015 - Female infertility of unspecified origin 2007 Female infertility - Migraine headache 01/10/2011 - Migraine with aura and without status migrainosus, not intractable 09/21/2015 - Personal history of urinary (tract) infection - Personal history of urinary calculi - Rosacea 07/23/2011 - Unspecified asthma(493.90) EXERCISE INDUCED - Variants of migraine, not elsewhere classified, with intractable migraine, so stated, without mention of status migrainosus ALLERGIES Cipro [Ciprofloxacin]; Sulfa (Sulfonamide Antibiotics) MEDICATIONS Current Outpatient Prescriptions: buPROPion XL (WELLBUTRIN XL) 150 mg 24 hr tablet Take 1 tablet by mouth once daily. acetaminophen 325 mg-caffeine 40 mg-butalbital 50 mg (FIORICET) per tablet Take 1 tablet by mouth every 6 hrs . as needed for migraine headache No current facility-administered medications for this visit. Medications and allergies reviewed by this provider. 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 OBJECTIVE: BP 112/64 (BP Site: Left Arm, BP Position: Sitting, BP Cuff Size: Large Adult) Pulse 60 Resp 18. Vital signs reviewed by this provider. APPEARANCE Well appearing, alert, in no acute distress, well- hydrated, well nourished. HEART RRR with normal S1 and S2, no murmurs, no gallops, no JVD appreciated LUNG clear to auscultation BACK: slight dec extension, mild pain to palpation in the LS spine left lower back. Negative SLR, negative findings: symmetric, no skin lesions, erythema, or scars, positive findings: limitation of motion - extension: mild EXTREMITIES Extremities normal, No deformities, No skin discoloration, No edema and Normal pulses bilaterally. NEURO Reflexes symmetrical, Normal gait, No involuntary motions. and negative findings: muscle tone normal, muscle strength normal, reflexes normal and symmetric ASSESSMENT/PLAN: 1. Low back pain radiating to lower extremity - ICD9: 724.2, ICD10: M54.5 (primary diagnosis) Sciatica - Ice for localized tenderness - Warm moist heat for 20 min three times a day - Prednisone burst- see orders - Muscle relaxant- see orders - Patient given instructions use of medications as ordered, intermittent rest, back care exercise program, improved posture, proper lifting techniques, intermittent use of heat and avoiding sleeping on a heating pad - Follow up in 2 weeks or sooner if symptoms persist or worsen 2. Screening for breast cancer - ICD9: V76.10, ICD10: Z12.31 - Encouraged monthly BSE - Follow up for annual exam in one year. - [facility] SCREENING Debra VitallogESCOBAR sims Prescription instructions reviewed with patient as applicable. Patient advised if symptoms do not improve or if symptoms worsen sooner, to contact their primary care physician. Potential red flag symptoms discussed with the patient. Reviewed appropriate action plan to take if red flag symptoms occur. Patient agreeable to treatment plan. Debra Zhou APRN.CNP 02/03/2018 8:32 AM Signed Acute Low Back Pain Overview: ? Eighty to 90 percent of people in the [place] will experience an episode of back pain at some time during their lives. ? Acute back pain refers to a brief episode of pain that comes on suddenly and lasts less than four weeks. Typically, pain improves within 2 weeks. ? The use of imaging (X-ray and MRI) is not recommended in most cases of acute low back pain. ? The exact cause of low back pain is often not identified but most people recover with simple treatment within a few weeks. Treatment: ? Acute back pain is almost always successfully treated with conservative (non-surgical) measures. ? Prolonged bed rest is not recommended and generally should not exceed 24-48 hours. Gradually resuming normal activities as soon as you are able is best. ? Your physician may recommend simple exercises to further speed your recovery. ? Assuming good posture while standing, sitting, sleeping, and driving may also help alleviate acute low back pain. ? Over the counter, non-prescription, pain relievers such as acetaminophen and ibuprofen may be used in your treatment of pain. ? Opioid or narcotic medications are not recommended, and you should refrain from the use of such medications. In fact, use of these drugs may prolong the amount of time it takes for you to recover. Follow Up: ? See your health care provider if: o You experience fever o The pain does not improve within 2 weeks or worsen o The pain progressively moves from your back into your leg(s) o You notice progressive weakness in your legs o You experience problems in your balance or walking o You notice difficulty controlling your bowels or bladder Debra Vitalloglevi, BRANCH LIBRARY CLERK.GASKET MAKER Kitty Rodney, [id number] February 03, 2018 Referring Provider: SELF [200] Allergies As of Date: 02/03/2018 Noted Allergy Reaction CIPRO (CIPROFLOXACIN) 08/11/2005 4 - Hives SULFA (SULFONAMIDE ANTIBIOTICS) 08/11/2005 4 - Hives Date Reviewed: 02/03/2018 Reviewed by: Doris Turner LPN - Fully Assessed Reason for Visit: Back Pain [12] Cmt: low back pain radiated down left leg , started about a week ago now. Did go to urgent care in [place] Primary Visit Diagnosis:Low back pain radiating to lower extremity [M54.5] Other Visit Diagnosis:Screening for breast cancer [Z12.31] Order(s):[facility] SCREENING [7172397] Order #: [id number] FUTURE tiZANidine (ZANAFLEX) 4 mg tabletTake 0.5 tablets by mouth every 6 hours as needed (muscle spasms).Disp: 30 tabletRfl: 0 predniSONE (DELTASONE) 20 mg tabletTake 1 tablet by mouth once daily.Disp: 5 tabletRfl: 0 Prescriptions as of 02/03/2018 Sig: BUPROPION XL 150 MG TAB Take 1 tablet by mouth once d* [id number]-[id number]-VTKB* Take 1 tablet by mouth every * TIZANIDINE 4 MG TABLET Take 0.5 tablets by mouth tra* PREDNISONE 20 MG TABLET Take 1 tablet by mouth once d* Problem List As Of Date 02/03/2018 Noted Resolved DYSMETABOLIC SYNDROME X [E88.81] INVALID FOR* GENERALIZED ANXIETY DIS [F41.1] INVALID FOR* Sprain and strain of unspecified site of should*INVALID FOR*09/21/2015 Pain in joint, lower leg [M25.569] INVALID FOR*09/21/2015 Supervision of other normal [Z34.80] INVALID FOR*09/21/2015 Elderly multigravida with antepartum condition *INVALID FOR*09/21/2015 Threatened , antepartum [O20.0] INVALID FOR*09/21/2015 Rosacea [L71.9] INVALID FOR*09/21/2015 Fracture of 5th metatarsal [S92.353A] INVALID FOR*09/21/2015 Neck pain [M54.2] INVALID FOR*09/21/2015 More... Migraine with aura and without status migrainos*INVALID FOR* Exercise-induced asthma [J45.990] INVALID FOR* Odynophagia [R13.10] INVALID FOR* Anxiety and depression [F41.9, F32.9] INVALID FOR* Other instructions from your clinician: Acute Low Back Pain Overview: ? Eighty to 90 percent of people in the [place] will experience an episode of back pain at some time during their lives. ? Acute back pain refers to a brief episode of pain that comes on suddenly and lasts less than four weeks. Typically, pain improves within 2 weeks. ? The use of imaging (X-ray and MRI) is not recommended in most cases of acute low back pain. ? The exact cause of low back pain is often not identified but most people recover with simple treatment within a few weeks. Treatment: ? Acute back pain is almost always successfully treated with conservative (non-surgical) measures. ? Prolonged bed rest is not recommended and generally should not exceed 24-48 hours. Gradually resuming normal activities as soon as you are able is best. ? Your physician may recommend simple exercises to further speed your recovery. ? Assuming good posture while standing, sitting, sleeping, and driving may also help alleviate acute low back pain. ? Over the counter, non-prescription, pain relievers such as acetaminophen and ibuprofen may be used in your treatment of pain. ? Opioid or narcotic medications are not recommended, and you should refrain from the use of such medications. In fact, use of these drugs may prolong the amount of time it takes for you to recover. Follow Up: ? See your health care provider if: o You experience fever o The pain does not improve within 2 weeks or worsen o The pain progressively moves from your back into your leg(s) o You notice progressive weakness in your legs o You experience problems in your balance or walking o You notice difficulty controlling your bowels or bladder Debra Zhou APRN.MO Rodney, [id number] February 03, 2018 Prescriptions ordered this encounter Disp Refills Start End TIZANIDINE 4 MG TABLET 30 t* 0 02/03/2018 Route: ORAL Sig: Take 0.5 tablets by mouth every 6 hours as needed (muscle spasms). PREDNISONE 20 MG TABLET 5 ta* 0 02/03/2018 Route: ORAL Sig: Take 1 tablet by mouth once daily. Follow-up and Disposition History Recorded Encounter Status:Closed by DEBRA ZHOU CNP on 02/03/18 CBC-COMPLETE BLOOD CNT Collected: 2018 Status: F Source: [place] NO DIFF 4:37 PM [facility] REPOSITORY TYPE CODE TESTS RESULT OUT OF RANGE REFERENCE UNITS LAB L100.1000 4.4-11.0 K/mm3 Normal WBC 8.4 LAB L100.1200 4.2-5.4 M/mm3 Normal RBC 4.87 LAB L100.1300 12.0-15.0 g/dl Normal HGB 14.8 LAB L100.1400 37-47 % Normal HCT 41.7 LAB L100.1500 81-99 fL Normal MCV 85.6 LAB L100.1600 27.0-32.0 pg Normal MCH 30.4 LAB L100.1700 32-36 g/gl Normal MCHC 35.5 LAB L100.1810 11.6-14.6 % Normal RDW CV 13.1 LAB L100.1820 35.1-43.9 fl Normal RDW SD 40.5 LAB L100.1900 150-450 K/mm3 High PLT 451 LAB L100.2000 6.2-12.0 fl Normal MPV 9.8 Performed By: #### L100.0500 #### [facility] [address], [place], [id number] THYROID STIM HORMONE Collected: 2018 Status: F Source: [place] (TSH) 4:37 PM [facility] REPOSITORY TYPE CODE TESTS RESULT OUT OF RANGE REFERENCE UNITS LAB L501.9520 0.358-3.74 uIU/mL Normal TSH 1.85 Performed By: #### L501.9520 #### [facility] [address], [place], [id number] PROGRESS Observed: 12/28/2017 Status: COMPLETED Source: [place] 11:41 AM [facility] REPOSITORY O ID: [id number] Author: Jia Trinidad LPN Service: (none) Author Type: (none) Type: Progress Notes Filed: 12/28/2017 12:03 PM Note Text: 47 year old female here for INACTIVATED INFLUENZA VACCINE. 9065-4233 Season Patient is identified by name and date of : Yes [] CONTRAINDICATIONS color enhanced section Age less than 6 months? No Allergy to eggs, chicken, chicken feathers, or chicken dander? No Allergy to thimerosal (a preservative) or formaldehyde? No History of severe reaction to any vaccine component or a previous dose of influenza vaccination? No History of Guillain-Sharon Syndrome within 6 weeks after a previous influenza vaccine? No Current moderate or severe illness? No Current temperature greater or equal to 100.4F? No History of Bone Marrow Transplant in past 6 months or solid organ transplant in the past 3 months ? No [] VERIFICATION color enhanced section Was the answer Yes for any of the above contraindications? No contraindications present. Acceptable to proceed with vaccine. Patient/guardian agrees the above answers are true to the best of their knowledge? Yes Flu vaccine information sheet given? Yes See immunization activity in [facility] for details of immunizations adminstered today. Patient age: [age] year old For The 4799-8146 Flu Season 6-35 months old: Fluzone 0.25 ml - IM (Preservative Free) 3 years of age: Fluzone 0.5 ml - IM (Preservative Free) 3 years and older: Fluzone 0.5 ml- IM-(with Preservatives) 65+ years old: Fluzone High-Dose 0.5 ml - IM (Preservative Free) REMEMBER: If patient is less than 9 years of age and this is the first vaccine of Influenza to be received in any flu season, they should receive a second dose in one months time. Ebenezer Trinidad LPN PROGRESS Observed: 12/21/2017 Status: COMPLETED Source: [place] 2:07 PM [facility] [place] REPOSITORY O ID: [id number] Author: Kendall Cunha III Service: (none) Author Type: Physician Type: Progress Notes Filed: 12/21/2017 4:10 PM Note Text: SUBJECTIVE: This is a 47 year old female that is here today for 1. difficulty losing wt, though previous [employer] worked until she messed up and quit. carboholic and chocoholic. Not very committed to find time to exercise or to change diet. 2. anxiety/depression: Previous SSRI associated with weight gain. She does go to monthly family counseling with Dr. Bill Vásquez, who recommended Wellbutrin. The patient denies having any sense of hopelessness, anhedonia, decreased interest in doing things. No chest pain, angina, dyspnea on exertion PAST MEDICAL HISTORY Diagnosis Date - Dysthymic disorder 1996 Depression (non-psychotic)/ANXIETY - Exercise-induced asthma 09/21/2015 - Female infertility of unspecified origin 2007 Female infertility - Migraine headache 01/10/2011 - Migraine with aura and without status migrainosus, not intractable 09/21/2015 - Personal history of urinary (tract) infection - Personal history of urinary calculi - Rosacea 07/23/2011 - Unspecified asthma(493.90) EXERCISE INDUCED - Variants of migraine, not elsewhere classified, with intractable migraine, so stated, without mention of status migrainosus Current Outpatient Prescriptions on File Prior to Visit: acetaminophen 325 mg-caffeine 40 mg-butalbital 50 mg (FIORICET) per tablet Take 1 tablet by mouth. as needed for migraine headache No current facility-administered medications on file prior to visit. FAMILY HISTORY Problem Relation Age of Onset - Lipids Mother High Cholesterol - Diabetes Father - Stroke Father - Heart Maternal Grandmother - Stroke Maternal Grandmother - Diabetes Paternal Grandmother - Stroke Paternal Grandfather - Cancer Maternal Aunt BONE CANCER Social History Substance Use Topics - Smoking status: Never Smoker - Smokeless tobacco: Never Used - Alcohol use No BP 118/85 Pulse 95 Resp 16 LMP 11/30/2017 (Approximate) . OBJECTIVE: APPEARANCE Well appearing, alert, in no acute distress, well-hydrated, well nourished., Obese NECK Supple, no adenopathy; thyroid symmetric, normal size, no bruits HEART RRR with normal S1 and S2, no murmurs, no gallops, no JVD appreciated LUNG clear to auscultation ASSESSMENT: Obesity Anxiety possibly associated with depression History of migraine headaches?well controlled PLAN: healthy weight losing diet and regular exercise eat less sugar, bread, potato, pasta, rice, corn, corn syrup, saturated fats start wellbutrin XL 150mg daily follow up with Dr Lynne Vásquez as appointed Discussed and recommend a flu shot. Patient wants to think about whether to actually get it AUDREY Fountain MD, III MD PROGRESS Observed: 12/21/2017 Status: COMPLETED Source: [place] 1:47 PM [facility] REPOSITORY HNO ID: [id number] Author: Stephani (Ctrs) SUZANNA Chris Service: (none) Author Type: Dirt Contractor Type: Progress Notes Filed: 12/21/2017 4:10 PM Note Text: 47 year old female here for INACTIVATED INFLUENZA VACCINE. 2393-9525 Season Patient is identified by name and date of : Yes [] CONTRAINDICATIONS color enhanced section Age less than 6 months? No Allergy to eggs, chicken, chicken feathers, or chicken dander? No Allergy to thimerosal (a preservative) or formaldehyde? No History of severe reaction to any vaccine component or a previous dose of influenza vaccination? No History of Guillain-Sharon Syndrome within 6 weeks after a previous influenza vaccine? No Current moderate or severe illness? No Current temperature greater or equal to 100.4F? No History of Bone Marrow Transplant in past 6 months or solid organ transplant in the past 3 months ? No [] VERIFICATION color enhanced section Was the answer Yes for any of the above contraindications? No contraindications present. Acceptable to proceed with vaccine. Patient/guardian agrees the above answers are true to the best of their knowledge? Yes Flu vaccine information sheet given? Yes See immunization activity in [facility] for details of immunizations adminstered today. Patient age: [age] year old For The 9419-7758 Flu Season 6-35 months old: Fluzone 0.25 ml - IM (Preservative Free) 3 years of age: Fluzone 0.5 ml - IM (Preservative Free) 3 years and older: Fluzone 0.5 ml- IM-(with Preservatives) 65+ years old: Fluzone High-Dose 0.5 ml - IM (Preservative Free) REMEMBER: If patient is less than 9 years of age and this is the first vaccine of Influenza to be received in any flu season, they should receive a second dose in one months time. PROGRESS Observed: 12/08/2017 Status: COMPLETED Source: [place] 3:33 PM [facility] [place] REPOSITORY HNO ID: [id number] Author: Stephie Leslie (Yeimi) Hong Service: (none) Author Type: Nurse Practitioner Type: Progress Notes Filed: 12/08/2017 5:42 PM Note Text: Chief Complaint Patient presents with: Sinus Problem HPI Kitty Rodney is a 47 year old female who presents here today for Above Complaints. Sx of nasal congestion, sneezing, sinus pain x 4 days and progressively worsening. Chills and sore throat over the weekend, now pain into bridge of nose, cheeks and teeth, L>R, and frontal headaches. No documented temperature. + nausea, no vomiting no diarrhea. No other family members ill. Sx not treated. H/o sinusitis in the past, sx feel same. The ROS is otherwise negative. Past medical history, appointments, medications, allergies reviewed. Patient Allergies ALLERGIES Allergen Reactions - Cipro [Ciprofloxaci* Hives - Sulfa (Sulfonamide * Hives Current Medications Current Outpatient Prescriptions on File Prior to Visit: acetaminophen 325 mg-caffeine 40 mg-butalbital 50 mg (FIORICET) per tablet Take 1 tablet by mouth. as needed for migraine headache pantoprazole DR (PROTONIX) 40 mg tablet Take 1 tablet by mouth once daily. acyclovir (ZOVIRAX) 5 % crea Apply 1 application to affected area five times daily. Use for 4 days with viral sores. Location: lip escitalopram oxalate (LEXAPRO) 20 mg tablet Take 1 tablet by mouth once daily. albuterol HFA (PROAIR HFA) 90 mcg/actuation inhaler Inhale 2 Puffs as instructed every 4 hours as needed for Wheezing/Shortness of Breath. No current facility-administered medications on file prior to visit. Previous Medical History PAST MEDICAL HISTORY Diagnosis Date - Dysthymic disorder 1996 Depression (non-psychotic)/ANXIETY - Exercise-induced asthma 09/21/2015 - Female infertility of unspecified origin 2007 Female infertility - Migraine headache 01/10/2011 - Migraine with aura and without status migrainosus, not intractable 09/21/2015 - Personal history of urinary (tract) infection - Personal history of urinary calculi - Rosacea 07/23/2011 - Unspecified asthma(493.90) EXERCISE INDUCED - Variants of migraine, not elsewhere classified, with intractable migraine, so stated, without mention of status migrainosus Previous Surgical History PAST SURGICAL HISTORY Procedure Laterality Date - DELIVERY ONLY 08/2009 , low transverse - EGD W/O BRSH SPECIMEN W/BX 12/12/2016 - G-ESOPH REFLX TST W/ELECTROD 12/12/2016 - HYSTEROSALPINGOGRAM CATHANDINSTILL Family History FAMILY HISTORY Problem Relation Age of Onset - Lipids Mother High Cholesterol - Diabetes Father - Stroke Father - Heart Maternal Grandmother - Stroke Maternal Grandmother - Diabetes Paternal Grandmother - Stroke Paternal Grandfather - Cancer Maternal Aunt BONE CANCER Social History Social History Marital status: Spouse name: Leonid Years of education: 16 Number of children: 1 Occupational History 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 Head: Normocephalic, no masses, lesions, tenderness or abnormalities. Eyes: Anicteric sclera. Pupils are equally round and reactive to light. Extraocular movements are intact. . Ears: External ears normal, canals clear. Nose/Sinuses: Positive findings: mucosa erythematous and swollen, purulent rhinorrhea, sinus tenderness over bilateral maxillary sinuses. Oropharynx: Lips, mucosa, and tongue normal, teeth and gums normal, oropharynx normal. Neck: Supple, no adenopathy; thyroid symmetric, normal size, no bruits. Lungs: Lungs clear to auscultation. No wheezing, rhonchi, rales. Heart: RRR without murmur, gallop, or rubs. No ectopy. ASSESSMENT/PLAN: 1. Bacterial sinusitis - ICD9: 473.9, 041.9, ICD10: J32.9, B96.89 - Will begin treatment with Jntzwn224 mg BID for 10 days - The patient should also be given OTC decongestants prn for the first 5-7 days of treatment. - Supportive care with plenty of fluids, rest, and analgesia prn. - Follow up in 3-5 days if symptoms persist or worsen. - CEFUROXIME AXETIL 500 MG TABLET DEBBIE Del Rosario GASKET MAKER ALLERGIES ALLERGIES DATE TYPE / CODE NAME / CODE REACTION SEVERITY SOURCE 12/12/2016 Drug Sulfa (Sulfonamide Unknown Unknown Ariana Allergy/416 Antibiotics)/[id number] [facility] [id number]([facility] 0491([facility] ED CT) Repository 12/12/2016 Drug ciprofloxacin/F0060 Unknown Unknown Ariana Allergy/416 08750(RXNORM) [facility] 389006([facility] ED CT) Repository 08/11/2005 DRUG [facility] INGREDI/[address] 340858(SN Repository ED CT) 08/11/2005 Drug SULFA (SULFONAMIDE [facility] Class/25800 ANTIBIOTICS) [address] 1003(SNOMED Repository CT) ENCOUNTERS ENCOUNTERS ADMIT/DISCHARGE ACCOUNT ADMITTING ENCOUNTER LOCATION SOURCE NUMBER CLASS 10/18/2018 [id number] [facility] ing:WOBLAB Repository 04/16/2018/04/16/[id number] Repository 04/16/2018/04/20/[id number] Repository 04/16/2018 [id number] [facility] ing:OPBI Repository 04/16/2018 [id number] [facility] Repository 03/26/2018/03/30/[id number] Repository 02/05/2018 [id number] [facility] ing:LABSPEC Repository 02/03/2018/02/05/20 [id number] Ambulatory [address] Repository 2018 [id number] [facility] ing:WOBLAB Repository 12/28/2017/12/29/19 [id number] Ambulatory [address] Repository 12/21/2017/12/21/19 [id number] Ambulatory [address] Repository 12/08/2017/12/08/19 [id number] Ambulatory [address] Repository PAYERS PAYERS ENCOUNTER GUARANTOR PAYER SUBSCRIBER SOURCE 10/18/2018 Amberly Hawthorne [address] [id number] State Insurance:MEDICAL JESUSDOB: [facility] [id number], Number: Repository [place] [address]Dpt: [id number] Date:3298-20-20[address] () [address], [place] [address]CP: 10/18/2018 Secondary NOT GIVENUNK Ariana Insurance:SELF PAY [facility] Number: Effective Repository Date:2018-10-18 04/16/2018 Amberly E Primary [address] [id number] State Insurance:MEDICAL JESUSNZDOB: [facility] [id number], Number: Repository [place] [address]Ggw: [id number] Date:[id number] (HP) [address], [place] [address]AD: 04/16/2018 Secondary NOT GIVENUNK Ariana Insurance:SELF PAY [facility] Number: Effective Repository Date:2018-02-05 02/05/2018 Amber[address] E [address] [id number] State Insurance:MEDICAL JESUSNZDOB: [place] [id number], Number: Repository [place] [id number]: [id number] Date:[id number] () [address], [place] [address]KH: 02/05/2018 Secondary NOT GIVENUNK Ariana Insurance:SELF PAY [facility] Number: Effective Repository Date:2018-02-05 2018 Amberly CARSONAVER Ariana [id number] State Insurance:[facility] OPAL: [facility] [address] [facility] [id number], Number: Repository [place] [address]Enp: [id number] Date:9054-57-60[address] (GZ) [address], [place] [address]GH: 2018 Secondary NOT GIVENUNK Ariana Insurance:SELF PAY [facility] Number: Effective Repository Date:2018
== END ==
PROVIDERS: Visit Provider Obstetrics & Gynecology
DX: N92.4 Excessive bleeding in the premenopausal period (principal); N92.6 Irregular menstruation, unspecified; R63.5 Abnormal weight gain
CPT/HCPCS: 36415; 83001; 84443; 85027

== ENCOUNTER 2019-01-12 10:58 | Day surgery (SDC) | payer OTHER, SELFPAY ==
--- NOTE | 2019-01-03 15:34 | HP.PCM_ITS ---
History and Physical Date of Admission: 01/03/19 Name: KATHY JAMIL Age: 48 Date of : 1970 Kathy Jamil, a 48 year old female 2 0 1 0 2, presented for: -- Pre-Op HISTORY AND PHYSICAL Kathy is being seen for pre op visit. Pt will have surgery 01-12-19 for HS and D and C, possible POlypectomy/Mayra. Medications and allergies are up to date. Surgery consents signed and gone over with pt. AM -- spotting/irritation which began months. Kathy claims it started gradually. It is located in the vagina. Severity is mild. An associated sign and symptom is external irritation. As above. Here for preop appt prior to hysteroscopy, D and C and possible polypectomy scheduled to evaluate and treat irreg bleeding. She does NOT want an endometrial ablation Does not want anything done that doesn't need to be done. She is asking if the polypectomy is needed. Advised that if a polyp is noted that it should be removed. Advised re sono findings, and discussed hysteroscopy D and C. Advised that the D and C may provide up to 6 mo of relief of irregular bleeding but that over time the lining will regrow in response to hormones. Declines the endometrial ablation. SONO: 01/12/18 UTERUS: 9.7 x 4.5 x 4.7cm, with a small posterior submucous fibroid seen measures 1.7 x 2.2 x 2 cm. ENDOMETRIAL ECHO: 12.6mm. RIGHT OVARY: not seen. LEFT OVARY: not seen. States that her spotting is better right now. EB ALLERGIES: Cipro, Hives, Sulfonamides, Hives MEDICATIONS HISTORY: Patient is also takin. Fioricet 50-325-40 mg Tablet, prn 2. tizanidine 4 mg tablet, 1/2 tab every 6 hours REVIEW OF SYSTEMS: GENERAL - Denies fever, or chills SKIN - Denies skin changes EYES - Denies visual changes EARS - Denies difficulty hearing NOSE - Denies nasal congestion or bleeding MOUTH - Denies sore throat or difficulty swallowing NECK - Denies pain or swelling RESPIRATORY - Denies shortness of breath or wheezing CARDIOVASCULAR - Denies palpitations or chest pain GASTROINTESTINAL - Denies nausea, vomiting, diarrhea, constipation GENITOURINARY - Denies dysuria, frequency of urination, incontinence of urine MUSCULOSKELETAL - Denies joint or muscle pain NEUROLOGICAL - Denies localized numbness or weakness PSYCHIATRIC - Denies depression or anxiety ENDOCRINE - Denies heat or cold intolerance, weight loss or gain HEMATO-IMMUNOLOGIC - Denies excesive bleeding with cuts SURGICAL HISTORY: 1. [place] Tooth Extraction 01-08 2. 08/31/2009 Leah Contreras M.D. 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 Illicit Drug Use - denies use of street drugs Sexual Activity - Residence - lives with Hours Worked - 35 Spouse-Sig Other Name - Leonid Rashaun Spouse-Sig Other Occupation - [employer] Spouse-Sig Other Phone No - [phone] Children Name(s) - Tonia Landers Control - none PHYSICAL EXAMINATION BP- 130/80 Sitting, Right arm, regular cuff Weight- 240.80 lbs Height- 64.00 inch BMI:41.42 CONSTITUTIONAL - NAD, well nourished, and well developed HEENT - Normocephalic, PERRLA, EOMI NECK - no nuchal rigidity EXTREMITIES - No edema or calf tenderness NEUROLOGICAL - Cranial nerves II-XII grossly intact PSYCHIATRIC - A and O to time, place, person, mood and affect ASSESSMENT: 1. Submucous Leiomyoma Of Uterus 2. Excessive Bleeding In The Premenopausal Period 3. Other Specified Irregular Menstruation PLAN BY DIAGNOSIS: 1. Excessive Bleeding In The Premenopausal Period, Irregular Menstruation and Unspecified Reviewed pelvic ultrasound results. Ovaries WNL, not seen. no free fluid Uterus WNL but small fibroid noted. Advised of options: expectant management; hormonal contraception (OCP, Xulane patch, nuvaring. Mirena IUD); endometrial ablation. Ultimately hysterectomy if continued irreg and heavy bleeding. Plans hysteroscopy, D and C. Declines the endometrial ablation. Advised that without the endometrial ablation, her irregular bleeding may recur within 6 months. Aware and declines. 2. Submucous Leiomyoma Of Uterus Advised re finding. Likely to resolve, involute with onset of menopause and avg age of menopause discussed May consider trial of hormonal contraception for this; Mirena IUD recommended as nothing remember to do (other than occasional string check) and will last up to 5 yrs. May consider endometrial ablation. DECLINES May consider hysterectomy. DECLINES. Prior C/S and prior vaginal delivery. Likely candidate for LAVH. Plans hysteroscopy, D and C and possible endometrial polypectomy.
[2019-01-03 15:43] LABS: Hemoglobin 14.8 g/dl (12.0-15.0); Mean Corp Hgb Conc 32.9 g/gl (32-36); Mean Corpuscular Hgb 29.3 pg (27.0-32.0); Mean Corpuscular Volume 89.1 fL (81-99); Mean Platelet Vol. 10.1 fl (6.2-12.0); Platelet Count 388 K/mm3 (150-450); RBC Distribution Width CV 13.2 % (11.6-14.6); RBC Distribution Width SD 42.1 fl (35.1-43.9); Red Blood Count 5.05 M/mm3 (4.2-5.4); White Blood Count 8.6 K/mm3 (4.4-11.0)
[2019-01-03 15:52] LABS: Scan Indicated on CBC? Y/N NO
[2019-01-03 16:09] LABS: Prothrombin Time (Protime)PT. 12.9 SECONDS (11.7-14.9)
[2019-01-03 16:10] LABS: Partial Thromboplast Time 26.4 Seconds (24.1-36.2)
[2019-01-12] VITALS (12 sets, daily range): BP systolic 114–152; BP diastolic 65–91; PULSE 78–99; RESP 16–18; TEMP 36.5–37.1; O2SAT 93–100; BMI 40.1
[2019-01-12 11:15] LABS: Internal QC Validated? YES +Cl - CLEAR BKGD
[2019-01-12 11:19] LABS: Pregnancy, Urine Negative Negative
--- NOTE | 2019-01-12 12:24 | PCM.DC.D&C ---
Discharge Diet: No Restrictions Discharge Activity: May Shower, May Take a Tub Bath Return to work on:: 01/13/19 May resume sexual activity in: No Restrictions Call your doctor if you observe: Fever of 101 or Higher, Using more than one pad per hour, Uncontrolled pain Additional Instructions: May resume usual activity on 01/13/19 No driving today, 01/12/19 Take Tylenol as needed for pain. You may add either 2 Aleve OR 2 Ibuprofen every 6 hrs as needed for pain. Allergies/Adverse Reactions: Allergies ciprofloxacin [From Cipro] Allergy (Verified 12/31/18 08:23) Unknown Sulfa (Sulfonamide Antibiotics) Allergy (Verified 12/31/18 08:23) Unknown Medications to take at Discharge Acetaminophen/Butalbital/Caffe [Fioricet] 1 tablet PO Q4H PRN PRN 12/12/16 Citalopram [Celexa] 10 mg PO DAILY 12/12/16 Plexus 1 pkt PO DAILY 12/31/18 Plexus Mediaburn 2 cap PO DAILY 12/31/18 Ranitidine HCl [Zantac 75] 75 mg PO PRN PRN 12/31/18 Tizanidine HCl [Zanaflex] 4 mg PO QHS 12/31/18 Primary Care Physician: Kendall Cunha III, MD [Primary Care Provider] - Test Results: Test results from this visit will be discussed in further detail at your follow-up appointment, if applicable. Please Follow Up With: Leah Contreras MD - [phone] When: in 2 wk for postop check up Proposed Discharge Date: 01/12/19
--- NOTE | 2019-01-12 12:28 | DCINST_ITS ---
Discharge Diet: No Restrictions Discharge Activity: May Shower, May Take a Tub Bath Return to work on:: 01/13/19 May resume sexual activity in: No Restrictions Call your doctor if you observe: Fever of 101 or Higher, Using more than one pad per hour, Uncontrolled pain Additional Instructions: May resume usual activity on 01/13/19 No driving today, 01/12/19 Take Tylenol as needed for pain. You may add either 2 Aleve OR 2 Ibuprofen every 6 hrs as needed for pain. Allergies/Adverse Reactions: Allergies ciprofloxacin [From Cipro] Allergy (Verified 12/31/18 08:23) Unknown Sulfa (Sulfonamide Antibiotics) Allergy (Verified 12/31/18 08:23) Unknown Medications to take at Discharge Acetaminophen/Butalbital/Caffe [Fioricet] 1 tablet PO Q4H PRN PRN 12/12/16 Citalopram [Celexa] 10 mg PO DAILY 12/12/16 Plexus 1 pkt PO DAILY 12/31/18 Plexus Mediaburn 2 cap PO DAILY 12/31/18 Ranitidine HCl [Zantac 75] 75 mg PO PRN PRN 12/31/18 Tizanidine HCl [Zanaflex] 4 mg PO QHS 12/31/18 Primary Care Physician: Kendall Cunha III, MD [Primary Care Provider] - Test Results: Test results from this visit will be discussed in further detail at your follow- up appointment, if applicable. Please Follow Up With: Leah Contreras MD - [phone] When: in 2 wk for postop check up Proposed Discharge Date: 01/12/19
--- NOTE | 2019-01-12 12:29 | PCM.OPRPT ---
Report of Operation Date of Procedure: 01/12/19 Pre-Operative Diagnosis: excessive bleeding in premenopause. Irregular menses. Submucous fibroid on sono and possible endometrial polyp Post-Operative Diagnosis: excessive bleeding in premenopause. Irregular menses. Submucous fibroid on sono. Endometrial polyp Surgery/Procedure Performed:: hysteroscopy, D and C, polypectomy Description of Surgical Findings:: Findings: Normal appearing cervix Normal appearing endometrium. Tubal ostia visualized bilaterally Endometrial polyp, removed in multiple pieces. Type of Anesthesia:: IV Sedation, Local - paracervical block 10 cc 1% lidocaine with 1:100,000 epinephrine Anesthesiologist: Sonia Rodríguez Specimen's removed: uterine curettings, fragments of endometrial polyp Drains: none voided prior to OR Estimated Blood Loss (mL): 20 Fluids Replaced: LR Description of Procedure: Narrative account After the R,B,Alternatives of the procedure were reviewed with the patient and her , informed consent was obtained. The patient was taken to the operating room with an IV running and placed in dorsal supine position of the operating table. She was given MAC IV sedation and repositioned to the dorsal lithotomy position and prepped and draped in the usual sterile fashion. A Graves speculum was placed into the vagina and the cervix was brought into view. The cervix was normal appearing . The cervix was instilled with 10 cc of 1% lidocaine with epinephrine as a paracervical block using a 20 G spinal needle. A single toothed tenaculum was applied to the anterior lip of the cervix. The cervix was then gently probed and sequentially dilated to allow admission of the hysteroscope into the endometrial cavity. The hysteroscopy was performed with findings noted as above. There was an endometrial polyp noted. A polypectomy and sharp curettage was performed and multiple small pieces of tissue were withdrawn and set aside. The hysteroscope was again inserted and confirmed that the polyp was removed. One final pass was conducted with the sharp curette tip advanced through the cervix to the uterine fundus . The multiple pieces of tissue were set aside for later pathology review. Excellent hemostasis was noted. The single toothed tenaculum was removed from the cervix and a sponge stick was used to remove any remaining tissue and blood from the upper vagina and cervix. The procedure was terminated. The speculum was removed. The patient was returned to dorsal supine position and awakened from IV sedation and transferred to her recovery room bed in stable condition after tolerating the procedure well. Sponge, lap, needle and instrument counts were correct x two. medications given intraoperatively included 10 cc of 1% lidocaine with epinephrine instilled as a paracervical block. For a complete listing of the medications given intraoperatively, see the anesthesia record. - Admit VTE Documentation VTE Present on Admission: No VTE Mechan Device Prophylaxis: SCD's
--- NOTE | 2019-01-12 12:30 | EMB_PTH ---
PATIENT: KATHY SAMAYOA LOC: [facility] [place] U#:[id number] AGE/SX: 49/F ROOM: RE01/12/[address]: Dr. Leah Contreras MD : 1970 BED: DIS: 01/12/2019 SPEC #: [id number] RECD: 01/12/19 13:52 STATUS: YURI REMarcy #: [id number] ABBY: 01/12/19 12:[address]: Leah Contreras DEPT: SURGICAL PATHOLOGY RECD BY: Jose Duong ENTERED: 01/12/19 14:29 SP TYPE: ENDOM BX/C OT DR: Dr. Kendall Cunha III, MD Tissues: Endometrium, NOS Procedures: Surgery Specimen Level IV HEADER OPERATION: Hysteroscopy, D & C PRE-OP DIAGNOSIS: Excessive bleeding TISSUE SUBMITTED: Endometrial curettings, possible polyp MICROSCOPIC DIAGNOSIS Endometrial curettings: Mildly disordered proliferative endometrium. SJ:franca 01/13/19 MICROSCOPIC DESCRIPTION Slides are reviewed. GROSS DESCRIPTION Received in fixative is one container labeled with the patient's name and designated endometrial curettings. The specimen consists of multiple irregular fragments of muñiz-pink soft tissue mixed with blood clot that in aggregate measure 3 x 2.5 x 0.3 cm. The entire specimen is submitted in one cassette. / SJ:franca 01/12/19 TC: 5 CPT: 77526
--- NOTE | 2019-01-12 15:55 | SUR.PHASEII ---
AT 1520, PATIENT WAS LIGHT-HEADED AND NAUSEATED AFTER AMBULATING TO BATHROOM, WAS ENCOURAGED TO REST. AFTER APPROX 20 MINUTES, PATIENT REPORTS SHE WAS STILL NAUSEATED BUT VERY MOTIVATED TO GO HOME. DR ROBBINS CONSULTED, INSTRUCTED TO MEDICATE WITH BENADRYL AND SUMANTH, MAY D/C PATIENT HOME; EDUCATED PATIENT AND ON BENEFITS/EFFECTS OF MEDICATION AND VERBALIZED UNDERSTANDING.
== END 2019-01-12 15:38 | disposition home or self-care (01) ==
LOC: SDC 10:59 → AC 11:01
PROVIDERS: Anesthesiology; Family Provider Family Medicine; PCP Family Medicine; Referring Provider Obstetrics & Gynecology; Visit Provider Obstetrics & Gynecology
PROC: 0U5B8ZZ Destruction of Endometrium, Via Natural or Artificial Opening Endoscopic (ICD-10-PCS; CPT 58558; principal; 2019-01-12 12:15)
DX: N92.1 Excessive and frequent menstruation with irregular cycle (principal); D25.0 Submucous leiomyoma of uterus; N84.0 Polyp of corpus uteri; K21.9 Gastro-esophageal reflux disease without esophagitis; Z79.899 Other long term (current) drug therapy; G43.909 Migraine, unspecified, not intractable, without status migrainosus
CPT/HCPCS: 00952; 58558; 36415; 81025; 85027; 85610; 85730; 86850; 86900; 88305; J7120; A4216; J2405

== ENCOUNTER 2019-01-16 14:24 | Emergency (ER) | payer OTHER, SELFPAY ==
[2019-01-12 11:19] VITALS: BMI 40.1
[2019-01-16 14:25] VITALS: BP 163/97; PULSE 82; RESP 16; TEMP 36.6; O2SAT 99; BMI 39.8
--- NOTE | 2019-01-16 15:01 | ED.VISSUMM ---
- ER Visit Summary Date of Service: 01/16/19 Chief Complaint: Patient presents with left leg pain. Leg pain started a while ago she had been seen by [facility], had x-rays. She was at [employer] today twisted the wrong way and developed pain again. Most of the pain is lateral left knee and lateral upper leg. She has some tenderness in her left lower back region. Physical Examination: Patient appears in some distress Otherwise normal exam Abdomen soft and nontender no guarding or rebound She has left paraspinal lumbar pain without any spinal tenderness. She has IT band pain. She has a negative straight leg test. She has tenderness over the knee laterally, however it still reproduced. She has no laxity to anterior posterior medial or lateral stressors. She has no hip pain normal logroll without any pain. Skin does not show any obvious rashes or lesions, no trauma. Alert oriented ?3 with no gross focal deficit Emergency Department Course and Treatment: Patient has ill-defined leg pain, this could be central from sciatic nerve but she has no neurological symptoms, more likely this is IT band related. Regardless I will treated with muscle relaxants and anti-inflammatories and she is to follow-up with her PCP for further testing. Discharge stable condition Impression: [Left leg pain] This note was generated with [employer] dictation software. It may contain incorrect words, spelling, and punctuation that were not noted in review of the chart prior to signing ED Disposition - Plan for ED Patient: Disposition: Home or Assisted Living Instructions: ED Knee Pain [facility]O Prescriptions: Tizanidine HCl 4 mg PO TID #30 tab Referrals: Kendall Cunha III, MD [Primary Care Provider] - 3-5 Days
--- NOTE | 2019-01-16 15:04 | ED.DCSUM_ITS ---
- ER Visit Summary Date of Service: 01/16/19 Chief Complaint: Patient presents with left leg pain. Leg pain started a while ago she had been seen by [facility], had x-rays. She was at [employer] today twisted the wrong way and developed pain again. Most of the pain is lateral left knee and lateral upper leg. She has some tenderness in her left lower back region. Physical Examination: Patient appears in some distress Otherwise normal exam Abdomen soft and nontender no guarding or rebound She has left paraspinal lumbar pain without any spinal tenderness. She has IT band pain. She has a negative straight leg test. She has tenderness over the knee laterally, however it still reproduced. She has no laxity to anterior posterior medial or lateral stressors. She has no hip pain normal logroll without any pain. Skin does not show any obvious rashes or lesions, no trauma. Alert oriented ?3 with no gross focal deficit Emergency Department Course and Treatment: Patient has ill-defined leg pain, this could be central from sciatic nerve but she has no neurological symptoms, more likely this is IT band related. Regardless I will treated with muscle relaxants and anti-inflammatories and she is to follow-up with her PCP for further testing. Discharge stable condition Impression: [Left leg pain] This note was generated with [employer] dictation software. It may contain incorrect words, spelling, and punctuation that were not noted in review of the chart prior to signing ED Disposition - Plan for ED Patient: Disposition: Home or Assisted Living Instructions: ED Knee Pain [facility]O Prescriptions: Tizanidine HCl 4 mg PO TID #30 tab Referrals: Kendall Cunha III, MD [Primary Care Provider] - 3-5 Days
[2019-01-16] MEDS: HYDROcodone Bitartrate/Apap 5/325 Tablet PO (15:20)
== END 2019-01-16 15:40 | disposition home or self-care (01) ==
PROVIDERS: Emergency Provider Emergency Medicine; Family Provider Family Medicine; PCP Family Medicine
DX: M79.605 Pain in left leg (principal); M54.9 Dorsalgia, unspecified
CPT/HCPCS: 96372; 99283

== ENCOUNTER → 2020-01-13 | Outpatient (CLI) | payer OTHER, SELFPAY ==
[2020-01-18 12:07] LABS: Age Gdln ACOG Testing 30-65 (.)
[2020-01-18 14:16] LABS: HPV APTIMA, High Risk Negative (Negative)
[2020-01-18 14:17] LABS: HPV Reflexed? YES, CHARGE PATIENT
== END | disposition home or self-care (01) ==
LOC: LABSPEC 16:09
PROVIDERS: PCP Family Medicine; Referring Provider Obstetrics & Gynecology; Visit Provider Obstetrics & Gynecology
DX: Z12.4 Encounter for screening for malignant neoplasm of cervix (principal)
CPT/HCPCS: 87624; 88175; G0145

== ENCOUNTER → 2020-03-09 12:04 | Outpatient (CLI) | payer OTHER, SELFPAY ==
--- NOTE | 2020-03-09 12:05 | BI_ITS ---
MAMMOGRAPHY - BILATERAL SCREENING REASON FOR EXAM: Female, 50 years old. Routine annual screening examination. PERTINENT HISTORY: Non-contributory. TECHNIQUE: Digital bilateral breast estephania (3D mammographic acquisition) in the CC and MLO projections. 2-D mediolateral oblique (MLO) and craniocaudad (CC) views of both breasts were obtained. CAD: Full Field Digital Mammography with Computer Added Detection was performed. COMPARISON: Comparison is made with prior study dated November 16, 2017 and June 08, 2014. FINDINGS: Breast Composition: The breasts are heterogeneously dense, which may obscure small masses. There are no dominant masses or suspicious calcifications. Stable benign-appearing bilateral axillary lymph nodes. No other significant abnormalities are identified. There has been no significant change since the prior study. BI/SCREEN MAMM (CAD) W/ESTEPHANIA BILAT IMPRESSION: Stable bilateral screening mammogram. Yearly follow-up mammogram recommended. (A) ASSESSMENT CATEGORY: BIRADS Category 2: Benign. A letter regarding these results will be sent to the patient by the facility within 30 days. Approximately 10% of breast cancers are not detected by mammography. A normal mammogram should not delay biopsy of a clinically suspicious abnormality. [id number] Electronically Signed: Abhijeet Franks, at 12:54 EDT , Service support ,
== END ==
PROVIDERS: PCP Family Medicine; Referring Provider Obstetrics & Gynecology; Visit Provider Obstetrics & Gynecology
DX: Z12.31 Encounter for screening mammogram for malignant neoplasm of breast (principal)
CPT/HCPCS: 77063; 77067

== ENCOUNTER 2021-11-29 10:57 | Outpatient (CLI) | payer OTHER, SELFPAY ==
--- NOTE | 2021-11-29 10:59 | BI_ITS ---
MAMMOGRAPHY - BILATERAL SCREENING REASON FOR EXAM: Female, 51 years old. Routine annual screening examination. PERTINENT HISTORY: Non-contributory. TECHNIQUE: Digital bilateral breast estephania (3D mammographic acquisition) in the CC and MLO projections. 2-D mediolateral oblique (MLO) and craniocaudad (CC) views of both breasts were obtained. CAD: Full Field Digital Mammography with Computer Added Detection was performed. COMPARISON: Comparison is made with prior study dated 03/09/2020 and 04/16/2018. FINDINGS: Breast Composition: The breasts are heterogeneously dense, which may obscure small masses. There are no dominant masses or suspicious calcifications. No other significant abnormalities are identified. There has been no significant change since the prior study. BI/SCRN MAMM (CAD)W/ESTEPHANIA BILAT IMPRESSION: Stable bilateral screening mammogram. Yearly follow-up mammogram recommended. (A) ASSESSMENT CATEGORY: BIRADS Category 1: Negative. A letter regarding these results will be sent to the patient by the facility within 30 days. Approximately 10% of breast cancers are not detected by mammography. A normal mammogram should not delay biopsy of a clinically suspicious abnormality. [id number] Electronically Signed: Abhijeet Franks MD at 13:55 EST ,
== END 2021-11-29 23:59 | disposition short-term general hospital (02) ==
LOC: OPBI 10:58
PROVIDERS: Visit Provider Student in an Organized Health Care Education/Training Program
DX: Z12.31 Encounter for screening mammogram for malignant neoplasm of breast (principal)
CPT/HCPCS: 77063; 77067

== ENCOUNTER → 2022-04-18 | Outpatient (CLI) | payer OTHER, SELFPAY ==
[2022-04-24 13:37] LABS: HPV APTIMA, High Risk Negative (Negative)
== END | disposition home or self-care (01) ==
LOC: LABSPEC 13:53
PROVIDERS: Visit Provider Student in an Organized Health Care Education/Training Program
DX: Z12.4 Encounter for screening for malignant neoplasm of cervix (principal)
CPT/HCPCS: 87624; 88175; G0145

== ENCOUNTER 2022-08-06 07:13 | Inpatient (IN) | payer OTHER, SELFPAY ==
[2022-08-06 07:14] VITALS: BP 149/80; PULSE 83; RESP 14; TEMP 36.1; O2SAT 99; BMI 37.9
--- NOTE | 2022-08-06 07:25 | CT_ITS ---
STUDY: CT ABDOMEN AND PELVIS WITH CONTRAST REASON FOR EXAM: Female, 52 years old. Abdominal pain -- IV PO Contrast RADIATION DOSAGE (If Supplied By Facility): CTDIvol = ( 14.84 ) mGy, DLP = ( 1139.42 ) mGycm TECHNIQUE: Transaxial images were obtained from the dome of the diaphragm to the symphysis pubis without oral contrast. IV 100mL Isovue-300 was administered. Sagittal and coronal images were reconstructed. Individualized dose optimization techniques were used for this CT. COMPARISON: None. FINDINGS: The visualized lung bases are unremarkable. The visualized portions of the heart are within normal limits. Normal liver. Small gallstones. Normal spleen. Normal pancreas. Normal bilateral adrenal glands. Normal right kidney. Normal left kidney. Normal visualized stomach. There is diffuse circumferential wall thickening of the deep distal ileum with increased markings in the surrounding peritoneal fat. Minimal dilatation of the proximal small bowel loops. Normal colon. The appendix is visualized and appears normal. There is scattered atherosclerotic calcification of the abdominal aorta, without a demonstrated aneurysm. Normal inferior vena cava. Normal retroperitoneum. Normal urinary bladder. Calcified fibroid uterus. There is a small umbilical hernia containing fat. There are mild degenerative changes of the visualized lumbar spine. CT/Abdomen/Pelvis WITH Contrast IMPRESSION: Diffuse circumferential wall thickening of the distal ileal small bowel loops with increased widening in the surrounding peritoneal fat. Mild proximal small bowel dilatation. Small gallstones. Electronically Signed: Abhijeet Franks MD at 10:01 EDT ,
--- NOTE | 2022-08-06 07:26 | EDS_ITS ---
HPI HPI - GI History of Present Illness Chief Complaint: Abd Pain Detail of Chief Complaint: Abdominal pain that started last evening around 10 PM Informant: patient Abdominal Pain/Flank Pain Current Severity: 05/11 Narrative Narrative: Patient presents with abdominal pain that started last evening around 10 PM. Patient thinks it came on somewhat suddenly and is located around her [facility]. Patient had 1 episode of vomiting and has some mild nausea. Patient did have a bowel movement at that time and it was formed stool without any blood in it. There is no black tarry stool. She denies fevers. She denies urinary symptoms. She is never had pain like this before. She does have prior history of and has had kidney stones before. Patient rates her pain a 7 out of 10. Prior similar symptoms: No PFSH PFSH Home Medications kdioeqcyos-rxtbbuitcsiyp-[id number] 50 mg-325 mg-40 mg tablet 1 tab PO Q4H PRN PRN MIGRAINES 12/12/16 [History Last Taken Unknown] citalopram 10 mg tablet 10 mg PO DAILY 12/12/16 [History Last Taken Unknown] Plexus 1 pkt PO DAILY 12/31/18 [History Last Taken Unknown] Plexus Mediaburn 2 cap PO DAILY 12/31/18 [History Last Taken Unknown] ranitidine HCl 75 mg tablet (Zantac) 75 mg PO PRN PRN Indigestion 12/31/18 [History Last Taken 01/12/19 08:30 75 MG] tizanidine 4 mg capsule (Zanaflex) 4 mg PO QHS 12/31/18 [History Last Taken Unknown] tizanidine 4 mg tablet 4 mg PO TID #30 tabs 01/16/19 [Rx Last Taken Unknown] Allergy/AdvReac Type Severity Reaction Status Date / Time ciprofloxacin [From Cipro] Allergy Unknown Verified 08/06/22 07:14 Sulfa (Sulfonamide Allergy Unknown Verified 08/06/22 07:14 Antibiotics) Social History Smoking Status: Never smoker ROS ROS ED Review of Systems ROS Unobtainable: other Constitutional Constitutional ED: Reports lethargy; Denies chills, fever(s), sweats or weight loss Eyes Eyes: Denies blurry vision, change in vision or diplopia ENT ENT ED: Denies rhinorrhea or sore throat Cardiovascular Cardiovascular: Denies chest pain, orthopnea or racing heartbeat Respiratory/Chest Respiratory/Chest: Denies cough, dyspnea, dyspnea on exertion, orthopnea or sputum Gastrointestinal Gastrointestinal: Reports abdominal pain, nausea and vomiting; Denies diarrhea Genitourinary Genitourinary ED: Denies dysuria, hematuria or urinary frequency Musculoskeletal Musculoskeletal: Denies arthralgias, back pain, myalgias or neck pain Integumentary Denies abscess, Abrasions or rash Neurologic Neurologic: Denies headache(s) or weakness Psychiatric Psychiatric: Denies anxiety, depression or suicidal thoughts Endocrine Endocrinology: Denies polydipsia, polyphagia or polyuria Hematologic/Lymphatic Hematologic/Lymphatic: Denies easy bleeding, easy bruising or lymphadenopathy Allergic/Immunologic Allergic/Immunologic ED: Denies mouth swelling, tongue swelling or urticaria EXAM Physical Exam Const Vital Signs: 08/06/22 07:14 Temperature 96.9 F L Temperature Source Temporal Pulse Rate 83 Respiratory Rate 14 Blood Pressure 149/80 H Blood Pressure Mean 103 Pulse Ox 99 Oxygen Delivery Method Room Air Positive well nourished and well developed General Appearance ED: well developed and NAD HEENT Reports TM's clear and moist mucous membranes normocephalic and atraumatic; Negative for trauma or tenderness Tympanic Membrane ED: Yes TM's clear Eyes PERRL and EOMs intact bilaterally General Eye ED: Negative for pale conjunctiva or scleral icterus Neck no lymphadenopathy, supple and no JVD General: Negative for tenderness Chest Wall inspection of chest normal and palpation of chest normal Chest: Negative for tenderness Resp normal respiratory effort and clear to auscultation bilaterally Effort and Inspection: Negative for respiratory distress or pain with movement Auscultation: Negative for rhonchi, wheezes or diminished lung sounds Cardio regular rate, regular rhythm, S1 normal heart sound, S2 normal heart sound and no murmurs Peripheral Pulses: pulses 2+ throughout GI normal to inspection, nondistended, normoactive bowel sounds, soft to palpation, non-distended and no masses GI Narrative: Tender to palpation periumbilically and left lower quadrant as well as suprapubic region. There are some mild guarding. There is no rebound, rigidity, or peritoneal signs. No masses palpated. Back/Spine no CVA tenderness and no thoracic nor lumbar tenderness Extremity normal to inspection General Extremety ED: Negative for edema General Extremity: Negative for edema Neuro oriented x3, CN's II-XII intact bilaterally, no sensory deficits noted and gait normal Sensorium / Orientation: awake, alert, oriented to person, oriented to place and oriented to time Motor Exam: strength 5/5 throughout and strength abnormal Psych mental status grossly normal Skin no rashes or lesions noted and no wounds MDM MDM MDM Narrative Medical decision making narrative: IV line established on arrival. Patient was medicated with morphine and Zofran and started on normal saline. Lab work-up was essentially unremarkable. CT scan of the M pelvis obtained was read by radiology as diffuse circumferential wall thickening of the distal ileal small bowel loops with increased markings in the surrounding peritoneal fat. Patient had mild proximal small bowel dilatation. Case discussed with general surgeon on-call Dr. Quinones who evaluated patient and did not feel this was a surgical issue and recommended that we discussed case with Dr. Miller in consultation. I discussed case with Dr. Miller and he recommended Solu-Medrol 80 mg every 8 hours and admission to medicine and he will consult on the case. Discussed case with hospitalist will evaluate patient for admission. Lab Data Attestation: I reviewed the patient's lab results. Labs: Laboratory Results - last 24 hr 08/06/22 08/06/22 08/06/22 07:37 07:37 07:37 WBC 9.0 RBC 5.07 Hgb 15.0 Hct 44.5 MCV 87.8 MCH 29.6 MCHC 33.7 RDW Std Deviation 39.8 RDW Coeff of Amando 12.5 Plt Count 394 MPV 9.6 Immature Gran % (Auto) 0.400 Neut % (Auto) 72.8 H Lymph % (Auto) 20.9 [place] % (Auto) 4.8 Eos % (Auto) 0.4 Baso % (Auto) 0.7 Absolute Neuts (auto) 6.6 Absolute Lymphs (auto) 1.88 Nucleated RBC % 0 Sodium 143 Potassium 4.1 Chloride 108 H Carbon Dioxide 29.0 Anion Gap 6 BUN 16 Creatinine 0.85 Estim Creat Clear Calc 68.37 Est GFR (MDRD) Af Amer 90 Est GFR (MDRD) Non-Af 75 BUN/Creatinine Ratio 18.7 Glucose 135 H Lactic Acid 1.1 Calcium 9.7 Total Bilirubin 0.70 AST 13 L ALT 18 Alkaline Phosphatase 91 Total Protein 7.6 Albumin 4.0 Globulin 3.6 Albumin/Globulin Ratio 1.1 Lipase 269 Urine Color Urine Clarity Urine pH Ur Specific [place] Urine Protein Urine Glucose (UA) Urine Ketones Urine Occult Blood Urine Nitrite Urine Bilirubin Urine Urobilinogen Ur Leukocyte Esterase Urine RBC Urine WBC Ur Squamous Epith Cells Urine Bacteria Urine Mucus 08/06/22 07:40 WBC RBC Hgb Hct MCV MCH MCHC RDW Std Deviation RDW Coeff of Amando Plt Count MPV Immature Gran % (Auto) Neut % (Auto) Lymph % (Auto) [place] % (Auto) Eos % (Auto) Baso % (Auto) Absolute Neuts (auto) Absolute Lymphs (auto) Nucleated RBC % Sodium Potassium Chloride Carbon Dioxide Anion Gap BUN Creatinine Estim Creat Clear Calc Est GFR (MDRD) Af Amer Est GFR (MDRD) Non-Af BUN/Creatinine Ratio Glucose Lactic Acid Calcium Total Bilirubin AST ALT Alkaline Phosphatase Total Protein Albumin Globulin Albumin/Globulin Ratio Lipase Urine Color Straw Urine Clarity Sl. Cloudy Urine pH 8.0 Ur Specific [place] 1.015 Urine Protein Negative Urine Glucose (UA) Normal Urine Ketones Negative Urine Occult Blood Negative Urine Nitrite Negative Urine Bilirubin Negative Urine Urobilinogen Normal Ur Leukocyte Esterase 100 H Urine RBC 0 SEEN Urine WBC 10-25 SEEN Ur Squamous Epith Cells 0 SEEN Urine Bacteria 3+ Urine Mucus 0 SEEN Radiography Diagnostic Testing: Clinical Impression(s) from Imaging Studies Abdomen/Pelvis CT 08/06/22 07:25 IMPRESSION: Diffuse circumferential wall thickening of the distal ileal small bowel loops with increased widening in the surrounding peritoneal fat. Mild proximal small bowel dilatation. Small gallstones. Electronically Signed: Abhijeet Franks MD at 10:01 EDT , Discharge Plan Triage Chief Complaint: Abd Pain ED Provider: Valery Cano Dx/Rx/DC Orders Clinical Impression: Abdominal pain, Inflammatory bowel disease, Hx of hypercholesterolemia Prescriptions: No Action citalopram 10 MG tablet 10 mg PO DAILY nwiihruqpi-rhbhuecguxvqb-hztb 1 TABLET tablet 1 tab PO Q4H PRN PRN (Reason: MIGRAINES) tizanidine [Zanaflex] 4 MG capsule 4 mg PO QHS Plexus 1 pkt PO DAILY Plexus Mediaburn 2 cap PO DAILY ranitidine HCl [Zantac 75] 75 MG tablet 75 mg PO PRN PRN (Reason: Indigestion) tizanidine 4 MG tablet 4 mg PO TID Qty: 30 0RF Primary Care Provider: Jevon Woodard Referrals: Care Physician,No Primary [Non-Staff] - Disposition Disposition: Acute Care [facility]
[2022-08-06] MEDS: Ondansetron 4 MG/2 ML Vial IV (07:45)
[2022-08-06] MEDS: 0.9% Normal Saline 1,000 ML 125 ML IV (07:45)
[2022-08-06] MEDS: Morphine 4 MG/ML Syringe IV ×2 (07:45→11:18)
[2022-08-06 07:52] LABS: Absolute Lymphocyte Count 1.88 X10^3/uL (0.83-4.51); Absolute Neutrophil Count 6.6 X10^3/uL (2.0-7.7); Basophil# 0.06 X10^3/uL; Basophil% 0.7 % (0-1); Eosinophil# 0.04 X10^3/uL; Eosinophils% 0.4 % (0-5); Hematocrit 44.5 % (37-47); Lymphocyte # 1.88 X10^3/ul (0.83-4.51); Lymphocyte % 20.9 % (19-41); Mean Corp Hgb Conc 33.7 g/dL (32-36); Mean Corpuscular Hgb 29.6 pg (27.0-32.0); Mean Corpuscular Volume 87.8 fL (81-99); Mean Platelet Vol. 9.6 fl (6.2-12.0); Monocyte# 0.43 X10^3/uL; Monocyte% 4.8 % (0-10); NRBC Flagged by Analyzer 0 % (0-5); Neutrophil # 6.55 X10^3/uL (2.7-7.7); Neutrophil % 72.8 % (47-70); Platelet Count 394 K/mm3 (150-450); RBC Distribution Width CV 12.5 % (11.6-14.6); RBC Distribution Width SD 39.8 fl (35.1-43.9); Red Blood Count 5.07 M/mm3 (4.2-5.4)
[2022-08-06 08:05] LABS: ALB/GLOB Ratio 1.1 RATIO (0.9-2.4); AST(SGOT) 13 U/L (15-37); Alanine Aminotransfer ALT/SGPT 18 U/L (13-56); Alkaline Phosphatase 91 U/L (45-117); Anion Gap 6 (5-15); BUN 16 mg/dL (7-18); BUN/Creat Ratio 18.7 RATIO (10-20); Calcium,Total 9.7 mg/dL (8.5-10.1); Chloride 108 mmol/L (98-107); Creatinine, Serum 0.85 mg/dL (0.55-1.02); EST Glomerular Filtration Rate 75 mL/min (>60); Est Glom Filt Rate - Afr Amer 90 mL/min (>60); Estimated Creatinine Clearance 68.37 ml/min; Globulin 3.6 g/dL (2.2-4.2); Glucose 135 mg/dL (74-106); Lipase 269 U/L (73-393); Potassium 4.1 mmol/L (3.5-5.1); Protein, Total 7.6 g/dL (6.4-8.2); Sodium Level 143 mmol/L (136-145)
[2022-08-06 08:28] LABS: Lactic Acid 1.1 mmol/L (0.4-1.9)
[2022-08-06 08:47] LABS: Color, Urine Straw (Yellow); Glucose, Dipstick Normal (Normal); Ketone-Dipstick Negative (Negative); Leukocyte Esterase-Dipstick 100 /ul (Negative); Mucous, Urine 0 SEEN /hpf (<or=2+); Nitrite-Dipstick Negative (Negative); Occult Blood-Urine Negative /ul (Negative); Protein-Dipstick Negative (Negative); Red Blood Cells-Urine 0 SEEN /hpf (0-5); Specific Gravity, Urine 1.015 (1.002-1.030); Squamous Epithelial Cells - UA 0 SEEN /hpf (5-10); Urine Bilirubin Dipstick Negative (Negative); Urine Clarity Sl. Cloudy (Clear); Urine Urobilinogen Normal (Normal)
[2022-08-06 08:58] LABS: Bacteria 3+ /hpf (None Seen); White Blood Cells 10-25 SEEN /hpf (0-5)
--- NOTE | 2022-08-06 10:53 | NURSING ---
DR TILA MEREDITH
--- NOTE | 2022-08-06 10:57 | NURSING ---
MED SURG KITTOE ABD PAIN
[2022-08-06 11:04] VITALS: BP 148/82; PULSE 80; RESP 14; RESP 16; TEMP 36.6; O2SAT 100; O2SAT 99
[2022-08-06] MEDS: MethylPREDNISolone 125 MG/2 ML Vial 80 MG IV ×3 (11:04→22:00)
--- NOTE | 2022-08-06 11:12 | HP.PCM.HOS_ITS ---
HPI - General General Date of Admission: 08/06/22 Date of Service: 08/06/22 Chief Complaint: Abdominal pain HPI Narrative KATHY MCMANUS, is a 52 F who presents with abdominal pain. Patient symptoms started a day prior to coming in. The patient pain was located around the periumbilical region. She describes the pain as being sharp in nature. Pain apparently radiated to her lower abdomen. Patient denied any diarrhea but admitted to being constipated. She also did experience nausea and vomited couple of times prior to presenting to the emergency department. Patient denied any previous history of inflammatory bowel disease. Denied any fever no chills. CT of the abdomen and pelvis obtained in the ED did show Diffuse circumf erential wall thickening of the distal ileal small bowelloops with increased widening in the surrounding peritoneal fat.? Mild proximal small bowel dilatation. Small gallstones. Patient was started on Solu-Medrol with consultation placed to GI Dr. Miller from the ED and patient subsequently admitted to regular nursing floor for further management ? PFSH Home Medications rnexxnovvq-rdwwdkvizuhvp-gcyfimdc 50 mg-325 mg-40 mg tablet 1 tab PO Q4H PRN PRN MIGRAINES 12/12/16 [History Last Taken Unknown] citalopram 10 mg tablet 10 mg PO DAILY 12/12/16 [History Last Taken Unknown] Plexus 1 pkt PO DAILY 12/31/18 [History Last Taken Unknown] Plexus Mediaburn 2 cap PO DAILY 12/31/18 [History Last Taken Unknown] ranitidine HCl 75 mg tablet (Zantac) 75 mg PO PRN PRN Indigestion 12/31/18 [History Last Taken 01/12/19 08:30 75 MG] tizanidine 4 mg capsule (Zanaflex) 4 mg PO QHS 12/31/18 [History Last Taken Unknown] tizanidine 4 mg tablet 4 mg PO TID #30 tabs 01/16/19 [Rx Last Taken Unknown] Allergy/AdvReac Type Severity Reaction Status Date / Time ciprofloxacin [From Cipro] Allergy Unknown Verified 08/06/22 07:14 Sulfa (Sulfonamide Allergy Unknown Verified 08/06/22 07:14 Antibiotics) Family History (Updated 08/06/22 @ 11:[address] Maxwell Luz MD) Father Hypertension Social History Smoking Status: Never smoker ROS ROS Narrative GENERAL: denies fever, chills, night sweats, weight loss, anorexia HEENT: denies headache, sinus congestion, or drainage, dysphagia RESPIRATORY: denies cough, sputum production, shortness of breath, CARDIAC: denies chest pain, palpitations, orthopnea, PND GASTROINTESTINAL: Abdominal pain nausea and vomiting GENITOURINARY: denies dysuria, urgency, frequency, heamaturia EXTREMITY: denies swelling MUSCULOSKELETAL: denies current joint pain or tenderness NEUROLOGIC: denies focal numbness, weakness, tingling HEMATOLOGIC: denies easy bruising and/or hemorrhage INTEGUMENT: denies rashes PSYCHIATRIC: denies suicidal or homicidal ideation Vital Signs Vital Signs Vital Signs: 08/06/22 07:14 08/06/22 11:04 08/06/22 11:04 Temperature 96.9 F L 97.9 F Temperature Source Temporal Temporal Pulse Rate 83 80 80 Respiratory Rate 14 14 16 Blood Pressure 149/80 H 148/82 H 148/82 H Blood Pressure Mean 103 104 104 Pulse Ox 99 99 100 Oxygen Delivery Method Room Air Room Air Room Air Weight Weight: 100.3 kg Body Mass Index (BMI) 37.9 Physical Exam Narrative GENERAL: cooperative HEENT: Atraumatic; normocephalic EYES; Anicteric, Normal Conjunctiva NECK; supple, normal thyroid, RESPIRATORY: Diminished to auscultation CARDIOVASCULAR: Regular S1 S2, GI: soft, normoactive bowel sounds, : No Renal angle tenderness; EXTREMITIES: No edema, no clubbing, MUSCULOSKELETAL: no muscle wasting NEURO: Awake; no lateralizing signs. SKIN: No Rash PSYCH; Flat affect Results Lab / Micro Data Result Diagrams: 08/06/22 07:37 08/06/22 07:37 Labs: Laboratory Results - last 24 hr 08/06/22 07:37: WBC 9.0, RBC 5.07, Hgb 15.0, Hct 44.5, MCV 87.8, MCH 29.6, MCHC 33.7, RDW Std Deviation 39.8, RDW Coeff of Amando 12.5, Plt Count 394, MPV 9.6, Immature Gran % (Auto) 0.400, Neut % (Auto) 72.8 H, Lymph % (Auto) 20.9, [place] % (Auto) 4.8, Eos % (Auto) 0.4, Baso % (Auto) 0.7, Absolute Neuts (auto) 6.6, Absolute Lymphs (auto) 1.88, Nucleated RBC % 0 08/06/22 07:37: Sodium 143, Potassium 4.1, Chloride 108 H, Carbon Dioxide 29.0, Anion Gap 6, BUN 16, Creatinine 0.85, Estim Creat Clear Calc 68.37, Est GFR (MDRD) Af Amer 90, Est GFR (MDRD) Non-Af 75, BUN/Creatinine Ratio 18.7, Glucose 135 H, Calcium 9.7, Total Bilirubin 0.70, AST 13 L, ALT 18, Alkaline Phosphatase 91, Total Protein 7.6, Albumin 4.0, Globulin 3.6, Albumin/Globulin Ratio 1.1, Lipase 269 08/06/22 07:37: Lactic Acid 1.1 08/06/22 07:40: Urine Color Straw, Urine Clarity Sl. Cloudy, Urine pH 8.0, Ur Specific [place] 1.015, Urine Protein Negative, Urine Glucose (UA) Normal, Urine Ketones Negative, Urine Occult Blood Negative, Urine Nitrite Negative, Urine Bilirubin Negative, Urine Urobilinogen Normal, Ur Leukocyte Esterase 100 H, Urine RBC 0 SEEN, Urine WBC 10-25 SEEN, Ur Squamous Epith Cells 0 SEEN, Urine Bacteria 3+, Urine Mucus 0 SEEN Radiology Impression Abdomen/Pelvis CT 08/06/22 07:25 IMPRESSION: Diffuse circumferential wall thickening of the distal ileal small bowel loops with increased widening in the surrounding peritoneal fat. Mild proximal small bowel dilatation. Small gallstones. Electronically Signed: Abhijeet Franks MD at 10:01 EDT , Assessment & Plan Assessment/Plan (1) Thickened small bowel: (2) Abdominal pain: PLAN: Plan Patient is a 52-year-old lady presented with abdominal pain imaging studies demonstrated inflammation involving the terminal ileum 1. Terminal ileitis ? Differential diagnosis include inflammatory bowel disease versus infection. Patient has been admitted to regular nursing floor managed with systemic steroid Solu-Medrol, IV fluids pain meds as well as antinausea medication. Consult was placed to Dr. Miller. As part of patient's evaluation requested for CRP as well as ESR, vitamin D D and B12 level 2. Acute cystitis ? Patient started on Rocephin cultures sent. Plan is to either continue with current antibiotic therapy or adjust accordingly. We will follow-up on culture result 3. Dyslipidemia ? Patient is on rosuvastatin did continue requested for lipid panel in a.m. 4. Class II obesity with BMI of 38 ? Weight loss advised 5. DVT prophylaxis ? Low risk encourage early ambulation Charges/Coding Visit Charges OBSV E&M: 60439 Initial observation care L3
--- NOTE | 2022-08-06 11:14 | HP.PCM_ITS ---
HPI - General General Date of Admission: 08/06/22 Date of Service: 08/06/22 Chief Complaint: Acute onset abdominal pain with nausea and vomiting HPI Narrative KATHY MCMANUS, is a 52 F who presents to [facility] with complaints of mid abdominal pain that began suddenly yesterday and was associated with an episode of nausea and vomiting. She reports that she has had similar pains the last year but they always seem to spontaneously resolved with bowel movements. She denies any history of screening colonoscopy or any GI diagnoses. She reports that her bowel movements typically are characterized by constipation, but she denies any blood. With her current presentation she denies any associated fevers or chills. She does work in a [employer] center so there is a potential for sick contacts. She denies any family history of significant GI diagnoses aside from a late presentation of pyloric stenosis and her mother. She specifically denies any family histories of inflammatory bowel disease, diverticulitis, or colon cancer. Patient's ER work-up is notable for normal white blood cell count, but mild left shift. CT imaging demonstrated some distal ileum thickening with inflammatory changes surrounding this portion of the bowel as well. PFSH Home Medications yfwzfrpual-owazbehlqzigk-oaafyaww 50 mg-325 mg-40 mg tablet 1 tab PO Q4H PRN PRN MIGRAINES 12/12/16 [History Last Taken Unknown] citalopram 10 mg tablet 10 mg PO DAILY 12/12/16 [History Last Taken Unknown] Plexus 1 pkt PO DAILY 12/31/18 [History Last Taken Unknown] Plexus Mediaburn 2 cap PO DAILY 12/31/18 [History Last Taken Unknown] ranitidine HCl 75 mg tablet (Zantac) 75 mg PO PRN PRN Indigestion 12/31/18 [History Last Taken 01/12/19 08:30 75 MG] tizanidine 4 mg capsule (Zanaflex) 4 mg PO QHS 12/31/18 [History Last Taken Unknown] tizanidine 4 mg tablet 4 mg PO TID #30 tabs 01/16/19 [Rx Last Taken Unknown] Allergy/AdvReac Type Severity Reaction Status Date / Time ciprofloxacin [From Cipro] Allergy Unknown Verified 08/06/22 07:14 Sulfa (Sulfonamide Allergy Unknown Verified 08/06/22 07:14 Antibiotics) Family History (Updated 08/06/22 @ 11:[address] Maxwell Luz MD) Father Hypertension Social History Smoking Status: Never smoker ROS Constitutional Constitutional: Denies change in weight, fever(s) or weakness Gastrointestinal Gastrointestinal: Reports abdominal pain, constipation, nausea and vomiting; Denies hematochezia or melena Vital Signs Vital Signs Vital Signs: 08/06/22 07:14 08/06/22 11:04 08/06/22 11:04 Temperature 96.9 F L 97.9 F Temperature Source Temporal Temporal Pulse Rate 83 80 80 Respiratory Rate 14 14 16 Blood Pressure 149/80 H 148/82 H 148/82 H Blood Pressure Mean 103 104 104 Pulse Ox 99 99 100 Oxygen Delivery Method Room Air Room Air Room Air Weight Weight: 221 lb 1.978 oz Body Mass Index (BMI) 37.9 Physical Exam Const alert, oriented x3 and well nourished General Appearance: cooperative Resp normal respiratory effort GI GI Narrative: Obese, no scars, nondistended. Soft, tender to palpation in the supraumbilical and right upper quadrant. No rebound tenderness. No signs of hernia. Results Lab / Micro Data Result Diagrams: 08/06/22 07:37 08/06/22 07:37 Labs: Laboratory Results - last 24 hr 08/06/22 07:37: WBC 9.0, RBC 5.07, Hgb 15.0, Hct 44.5, MCV 87.8, MCH 29.6, MCHC 33.7, RDW Std Deviation 39.8, RDW Coeff of Amando 12.5, Plt Count 394, MPV 9.6, Immature Gran % (Auto) 0.400, Neut % (Auto) 72.8 H, Lymph % (Auto) 20.9, [place] % (Auto) 4.8, Eos % (Auto) 0.4, Baso % (Auto) 0.7, Absolute Neuts (auto) 6.6, Absolute Lymphs (auto) 1.88, Nucleated RBC % 0 08/06/22 07:37: Sodium 143, Potassium 4.1, Chloride 108 H, Carbon Dioxide 29.0, Anion Gap 6, BUN 16, Creatinine 0.85, Estim Creat Clear Calc 68.37, Est GFR (MDRD) Af Amer 90, Est GFR (MDRD) Non-Af 75, BUN/Creatinine Ratio 18.7, Glucose 135 H, Calcium 9.7, Total Bilirubin 0.70, AST 13 L, ALT 18, Alkaline Phosphatase 91, Total Protein 7.6, Albumin 4.0, Globulin 3.6, Albumin/Globulin Ratio 1.1, Lipase 269 08/06/22 07:37: Lactic Acid 1.1 08/06/22 07:40: Urine Color Straw, Urine Clarity Sl. Cloudy, Urine pH 8.0, Ur Specific [place] 1.015, Urine Protein Negative, Urine Glucose (UA) Normal, Urine Ketones Negative, Urine Occult Blood Negative, Urine Nitrite Negative, Urine Bilirubin Negative, Urine Urobilinogen Normal, Ur Leukocyte Esterase 100 H, Urine RBC 0 SEEN, Urine WBC 10-25 SEEN, Ur Squamous Epith Cells 0 SEEN, Urine Bacteria 3+, Urine Mucus 0 SEEN Radiology Impression Abdomen/Pelvis CT 08/06/22 07:25 IMPRESSION: Diffuse circumferential wall thickening of the distal ileal small bowel loops with increased widening in the surrounding peritoneal fat. Mild proximal small bowel dilatation. Small gallstones. Electronically Signed: Abhijeet Franks MD at 10:01 EDT , Assessment & Plan Assessment/Plan (1) Thickened small bowel: PLAN: This is a 52-year-old female who presents with abdominal pain, nausea, and vomiting with history of constipation. CT imaging shows regional thickening of the distal ileum. However, the terminal ileum appears spared with my independent review of the CT imaging. She denies any family history of IBD. She is also denying diarrhea or bloody bowel movements. Differential diagnosis would include inflammatory bowel disease, infectious/regional enteritis, other? However, given this negative history, I am most suspicious for a regional enteritis. I have offered that we could perform a diet challenge and set her up for an outpatient endoscopy investigation as she is now 52 years old with recent GI complaints and abnormality in the small intestine. I have suggested this should be done with our senior procurement manager with the intent of performing as in- depth of an investigation as allowed of the distal ileum given our CT findings. Patient complains, however, that her pain is still present despite pain medication and seems to be flaring up again. Her also interjects that he has concerns of a delay for this investigation if she settles for outpatient management. This information was relayed to emergency medicine who plans to involve the hospitalist service and consultation with gastroenterology. Charges/Coding Visit Charges Inpatient E&M: 86502 Init Hosp L2
[2022-08-06 11:29] LABS: CRP 4.21 mg/L (0.0-3.0)
[2022-08-06 11:59] VITALS: BMI 38.0
[2022-08-06] MEDS: Dext 5%-0.45% NS 1,000 ML 125 ML IV ×2 (12:10→19:58)
[2022-08-06] MEDS: Mag Hydrox/Al Hydrox/Simeth 30 ML UDC PO ×2 (12:11→22:00)
[2022-08-06] MEDS: Ceftriaxone 1 GM/50 ML BAG IV (12:12)
[2022-08-06 12:36] VITALS: BP 128/97; PULSE 73; RESP 16; TEMP 36.9; O2SAT 100
[2022-08-06 12:56] LABS: Erythrocyte Sedimentation Rate 4 mm/hr (0-30)
[2022-08-06 13:29] VITALS: O2SAT 97
[2022-08-06 13:39] LABS: Vitamin B12 297 pg/mL (211-911); Vitamin D,25 Hydroxy 22.6 ng/mL
[2022-08-06] MEDS: 0.9% Saline Lock 10 ML Syringe IV (14:55)
[2022-08-06] MEDS: Polyethylene Glycol 3350 BOWEL PREP PO (15:22)
[2022-08-06] MEDS: Bisacodyl 5 MG Tablet 20 MG PO (16:29)
[2022-08-06 18:30] VITALS: BP 152/89; PULSE 99; RESP 18; TEMP 36.8; O2SAT 95
[2022-08-06 19:51] VITALS: BP 143/75; PULSE 89; RESP 18; TEMP 37; O2SAT 97
[2022-08-06] MEDS: Acetaminophen 325 MG Tablet 650 MG PO (19:57)
[2022-08-07] VITALS (10 sets, daily range): BP systolic 86–130; BP diastolic 45–72; PULSE 69–83; RESP 16–18; TEMP 36.5–36.8; O2SAT 93–99; BMI 37.0
--- NOTE | 2022-08-07 | COLBX_PTH ---
PATIENT: KATHY SAMAYOA LOC: MS3 U#:[id number] AGE/SX: 52/F ROOM: PR319 RE08/07/[address]: Dr. Maxwell Luz MD : 1970 BED: 1 DIS: 08/08/2022 SPEC #: [id number] RECD: 08/07/22 15:05 STATUS: YURI ROCHE #: [id number] ABBY: 08/07/22 00:[address]: Maximus Miller DEPT: SURGICAL PATHOLOGY RECD BY: Rashawn Ngo ENTERED: 08/08/22 10:34 SP TYPE: COLON BX OTHR DR: MD Dr. Maxwell Anthony MD Tissues: A - Ascending colon B - Ileum, NOS Procedures: Surgery Specimen Level IV Comments: @ Ordering doctor for SUIV edited from to @ by LADONNA at 08/08/22 1416 @ Submitting doctor edited from to @ by RGOOD at 08/08/22 1416 HEADER OPERATION: Colonoscopy (MAC), polypectomy, biopsies PRE-OP DIAGNOSIS: Thickening of small bowel TISSUE SUBMITTED: A ? Ascending colon polyp, B ? Terminal ileum MICROSCOPIC DIAGNOSIS A. Ascending colon polyp, biopsy: Inflammatory polyp. B. Terminal ileum, biopsy: No pathologic change. AM:franca 08/11/2022 MICROSCOPIC DESCRIPTION Slides are reviewed. GROSS DESCRIPTION A - Received in fixative is one container labeled with the patient's name and designated ascending colon polyp. The specimen consists of multiple irregular fragments of light muñiz soft tissue that in aggregate measure 1.5 x 0.8 x 0.3 cm. The specimen is totally submitted in one cassette. B - Received in fixative is one container labeled with the patient's name and designated terminal ileum biopsy. The specimen consists of multiple irregular fragments of light muñiz soft tissue that in aggregate measure 1 x 0.5 x 0.1 cm. The specimen is totally submitted in one cassette. / TYLOR:franca 08/08/2022 TC:5 [facility]: [id number] x2
[2022-08-07] MEDS: Dext 5%-0.45% NS 1,000 ML 125 ML IV (04:09)
[2022-08-07 05:32] LABS: Absolute Lymphocyte Count 1.21 X10^3/uL (0.83-4.51); Absolute Neutrophil Count 6.8 X10^3/uL (2.0-7.7); Hematocrit 40.7 % (37-47); Hemoglobin 14.1 g/dL (12.0-15.0); Lymphocyte # 1.21 X10^3/ul (0.83-4.51); Lymphocyte % 14.7 % (19-41); Mean Corp Hgb Conc 34.6 g/dL (32-36); Mean Corpuscular Hgb 30.2 pg (27.0-32.0); Mean Corpuscular Volume 87.2 fL (81-99); Mean Platelet Vol. 9.8 fl (6.2-12.0); Monocyte# 0.18 X10^3/uL; Monocyte% 2.2 % (0-10); NRBC Flagged by Analyzer 0 % (0-5); Neutrophil # 6.75 X10^3/uL (2.7-7.7); Neutrophil % 82.1 % (47-70); Platelet Count 366 K/mm3 (150-450); RBC Distribution Width CV 12.5 % (11.6-14.6); RBC Distribution Width SD 39.8 fl (35.1-43.9); Red Blood Count 4.67 M/mm3 (4.2-5.4); White Blood Count 8.2 K/mm3 (4.4-11.0)
[2022-08-07] MEDS: MethylPREDNISolone 125 MG/2 ML Vial 80 MG IV ×3 (05:37→21:14)
[2022-08-07 06:14] LABS: AST(SGOT) 10 U/L (15-37); Alanine Aminotransfer ALT/SGPT 17 U/L (13-56); Albumin, Serum 3.2 g/dL (3.2-5.0); Alkaline Phosphatase 77 U/L (45-117); Anion Gap 5 (5-15); BUN 7 mg/dL (7-18); BUN/Creat Ratio 9.8 RATIO (10-20); Bilirubin, Direct 0.13 mg/dL (0.00-0.30); Calcium,Total 8.9 mg/dL (8.5-10.1); Chloride 112 mmol/L (98-107); Creatinine, Serum 0.71 mg/dL (0.55-1.02); EST Glomerular Filtration Rate 92 mL/min (>60); Est Glom Filt Rate - Afr Amer 111 mL/min (>60); Estimated Creatinine Clearance 81.86 ml/min; Globulin 3.4 g/dL (2.2-4.2); Glucose 207 mg/dL (74-106); Magnesium 2.3 mg/dL (1.6-2.6); Potassium 3.8 mmol/L (3.5-5.1); Protein, Total 6.6 g/dL (6.4-8.2); Sodium Level 142 mmol/L (136-145); Thyroid Stim Hormone (TSH) 0.57 uIU/mL (0.358-3.74)
--- NOTE | 2022-08-07 07:54 | PN.HOSP_ITS ---
Subjective Subjective Patient seen complains of headache. Abdominal pain persist. Scheduled to undergo colonoscopy Objective Data Objective Data Vital Signs: Vital Signs Temp Pulse Resp BP Pulse Ox O2 Del Method 97.7 F L 79 16 110/61 96 Room Air 08/07/22 02:57 08/07/22 02:57 08/07/22 02:57 08/07/22 02:57 08/07/22 02:57 08/07/22 02:57 Oxygen Delivery Method Room Air Weight: 100.698 kg Body Mass Index (BMI) 38.0 Intake & Output: Intake and Output for Last 24 Hours 08/05/22 08/06/22 08/07/22 23:59 23:59 23:59 Intake Total 1299 / 1300 Balance 1299 / 1300 Lab / Micro Data Result Diagrams: 08/07/22 05:05 08/07/22 05:05 Labs: Laboratory Results - last 24 hr 08/06/22 07:37: Sodium 143, Potassium 4.1, Chloride 108 H, Carbon Dioxide 29.0, Anion Gap 6, BUN 16, Creatinine 0.85, Estim Creat Clear Calc 68.37, Est GFR (MDRD) Af Amer 90, Est GFR (MDRD) Non-Af 75, BUN/Creatinine Ratio 18.7, Glucose 135 H, Calcium 9.7, Total Bilirubin 0.70, AST 13 L, ALT 18, Alkaline Phosphatase 91, Total Protein 7.6, Albumin 4.0, Globulin 3.6, Albumin/Globulin Ratio 1.1, Lipase 269 08/06/22 07:37: Lactic Acid 1.1 08/06/22 07:37: ESR 4 08/06/22 07:37: C-React Prot Ext Range 4.21 H 08/06/22 07:40: Urine Color Straw, Urine Clarity Sl. Cloudy, Urine pH 8.0, Ur Specific [place] 1.015, Urine Protein Negative, Urine Glucose (UA) Normal, Urine Ketones Negative, Urine Occult Blood Negative, Urine Nitrite Negative, Urine Bilirubin Negative, Urine Urobilinogen Normal, Ur Leukocyte Esterase 100 H, Urine RBC 0 SEEN, Urine WBC 10-25 SEEN, Ur Squamous Epith Cells 0 SEEN, Urine Bacteria 3+, Urine Mucus 0 SEEN 08/06/22 12:21: Vitamin B12 297, Vitamin D 25-Hydroxy 22.6 08/07/22 05:05: WBC 8.2, RBC 4.67, Hgb 14.1, Hct 40.7, MCV 87.2, MCH 30.2, MCHC 34.6, RDW Std Deviation 39.8, RDW Coeff of Amando 12.5, Plt Count 366, MPV 9.8, Immature Gran % (Auto) 1.000 H, Neut % (Auto) 82.1 H, Lymph % (Auto) 14.7 L, [place] % (Auto) 2.2, Eos % (Auto) 0.0, Baso % (Auto) 0.0, Absolute Neuts (auto) 6.8, Absolute Lymphs (auto) 1.21, Nucleated RBC % 0 08/07/22 05:05: Sodium 142, Potassium 3.8, Chloride 112 H, Carbon Dioxide 25.0, Anion Gap 5, BUN 7, Creatinine 0.71, Estim Creat Clear Calc 81.86, Est GFR (MDRD) Af Amer 111, Est GFR (MDRD) Non-Af 92, BUN/Creatinine Ratio 9.8 L, Glucose 207 H, Calcium 8.9, Magnesium 2.3, Total Bilirubin 0.40, Direct Bilirubin 0.13, AST 10 L, ALT 17, Alkaline Phosphatase 77, Total Protein 6.6, Albumin 3.2, Globulin 3.4, TSH 0.57 Radiography Diagnostic Testing: Radiology Impression Abdomen/Pelvis CT 08/06/22 07:25 IMPRESSION: Diffuse circumferential wall thickening of the distal ileal small bowel loops with increased widening in the surrounding peritoneal fat. Mild proximal small bowel dilatation. Small gallstones. Electronically Signed: Abhijeet Franks MD at 10:01 EDT , Physical Exam Narrative GENERAL: cooperative HEENT: Atraumatic; normocephalic EYES; Anicteric, Normal Conjunctiva NECK; supple, normal thyroid, RESPIRATORY: Diminished to auscultation CARDIOVASCULAR: Regular S1 S2, GI: soft, normoactive bowel sounds, : No Renal angle tenderness; EXTREMITIES: No edema, no clubbing, MUSCULOSKELETAL: no muscle wasting NEURO: Awake; no lateralizing signs. SKIN: No Rash PSYCH; Flat affect Assessment & Plan Assessment/Plan (1) Thickened small bowel: (2) Abdominal pain: PLAN: Plan Patient is a 52-year-old lady presented with abdominal pain imaging studies demonstrated inflammation involving the terminal ileum 1. Terminal ileitis ? Differential diagnosis include inflammatory bowel disease versus infection. Patient has been admitted to regular nursing floor managed with systemic steroid Solu-Medrol, IV fluids pain meds as well as antinausea medication. Consult was placed to Dr. Miller. As part of patient's evaluation requested for CRP as well as ESR, vitamin D D and B12 level ? 08/07/2022; patient to undergo endoscopic evaluation by Dr. Miller 2. Acute cystitis ? Patient started on Rocephin cultures sent. Plan is to either continue with current antibiotic therapy or adjust accordingly. We will follow-up on culture result ? 08/07/2022 culture sent on admission results pending 3. Dyslipidemia ? Patient is on rosuvastatin did continue requested for lipid panel in a.m. 4. Class II obesity with BMI of 38 ? Weight loss advised 5. DVT prophylaxis ? Low risk encourage early ambulation 6. Hyperglycemia ? Secondary to patient being on the street however did request for hemoglobin A1c Charges/Coding Visit Charges OBSV E&M: 19733 Subsequent observation care L3
[2022-08-07] MEDS: Acetaminophen/Butalbital/Caffe 1 Tablet PO ×2 (10:22→21:10)
[2022-08-07] MEDS: Ceftriaxone 1 GM/50 ML BAG IV (10:25)
[2022-08-07 12:22] LABS: Hemoglobin A1c 5.3 % (3.8-5.6)
[2022-08-07] MEDS: Lactated Ringers 1,000 ML 15 ML IV (12:30)
--- NOTE | 2022-08-07 14:17 | OP.COLON_ITS ---
Patient Name: Kitty Rodney Procedure Date: 08/07/2022 1:45 PM Date of : 1970 Age: 52 Procedure: Colonoscopy Indications: Abdominal pain in the right lower quadrant, Abnormal CT of the GI tract Providers: Maximus Miller DO Medicines: Monitored Anesthesia Care Patient Profile: Last Colonoscopy: none. The patient's first colonoscopy is today. Complications: No immediate complications. Procedure: Pre-Anesthesia Assessment: - Prior to the procedure, a History and Physical was performed, and patient medications and allergies were reviewed. The risks and benefits of the procedure and the sedation options and risks were discussed with the patient. All questions were answered and informed consent was obtained. Patient identification and proposed procedure were verified by the physician in the pre-procedure area. Mental Status Examination: alert and oriented. Airway Examination: normal oropharyngeal airway and neck mobility. Respiratory Examination: clear to auscultation. CV Examination: normal. Prophylactic Antibiotics: The patient does not require prophylactic antibiotics. Prior Anticoagulants: The patient has taken no previous anticoagulant or antiplatelet agents. After reviewing the risks and benefits, the patient was deemed in satisfactory condition to undergo the procedure. The anesthesia plan was to use monitored anesthesia care (MAC). Immediately prior to administration of medications, the patient was re-assessed for adequacy to receive sedatives. The heart rate, respiratory rate, oxygen saturations, blood pressure, adequacy of pulmonary ventilation, and response to care were monitored throughout the procedure. The physical status of the patient was re-assessed after the procedure. After I obtained informed consent, the scope was passed under direct vision. Throughout the procedure, the patient's blood pressure, pulse, and oxygen saturations were monitored continuously. The adult colonoscope was introduced through the anus and advanced to the terminal ileum. The colonoscopy was performed without difficulty. The patient tolerated the procedure well. The quality of the bowel preparation was poor. Scope In: 1:57:46 PM Scope Withdrawal Time 0 hours 10 minutes 15 seconds Scope Out: 2:11:00 PM Total Procedure Duration Time 0 hours 13 minutes 14 seconds Findings: The perianal and digital rectal examinations were normal. A 5 mm polyp was found in the ascending colon. The polyp was sessile. The polyp was removed with a hot snare. Resection and retrieval were complete. Verification of patient identification for the specimen was done. Estimated blood loss was minimal. The terminal ileum contained a benign-appearing, intrinsic moderate stenosis measuring 3 cm (in length) x 2 mm (inner diameter) that was non-traversed. Biopsies were taken with a cold forceps for histology. Verification of patient identification for the specimen was done. Estimated blood loss was minimal. Impression: - Preparation of the colon was poor. - One 5 mm polyp in the ascending colon, removed with a hot snare. Resected and retrieved. - Stricture in the terminal ileum. Biopsied. Recommendation: - Discharge patient to home. - Advance diet as tolerated. - Continue present medications. - Await pathology results. - Repeat colonoscopy in 6 months because the bowel preparation was suboptimal. Procedure Code(s): --- Professional --- 97689, Colonoscopy, flexible; with removal of tumor(s), polyp(s), or other lesion(s) by snare technique 46367, 59, Colonoscopy, flexible; with biopsy, single or multiple CPT copyright 2017 [employer]. All rights reserved. The codes documented in this report are preliminary and upon magnetic resonance technologist review may be revised to meet current compliance requirements. Maximus Miller DO 08/07/2022 2:16:20 PM This report has been signed electronically. Number of Addenda: 0 Note Initiated On: 08/07/2022 1:45 PM
--- NOTE | 2022-08-07 14:17 | OP.CCLET_ITS ---
08/07/2022 Jevon Woodard Re : Colonoscopy procedure for Kitty Rodney Dear Yamilet This procedure was performed on August. My impressions and recommendations are as follows: Impressions : - Preparation of the colon was poor. - One 5 mm polyp in the ascending colon, removed with a hot snare. Resected and retrieved. - Stricture in the terminal ileum. Biopsied. Recommendations : - Discharge patient to home. - Advance diet as tolerated. - Continue present medications. - Await pathology results. - Repeat colonoscopy in 6 months because the bowel preparation was suboptimal. My findings are described in the full procedure note, which is enclosed. If I can be of further assistance, please feel free to contact me at . Sincerely, Maximus Miller, 08/07/2022 2:16:20 PM This report has been signed electronically.
[2022-08-07] MEDS: 0.9% Normal Saline 1,000 ML 125 ML IV (18:20)
[2022-08-07] MEDS: Atorvastatin Calcium 10 MG Tablet PO (21:10)
[2022-08-07] MEDS: 0.9% Saline Lock 10 ML Syringe IV (21:13)
[2022-08-08] MEDS: 0.9% Normal Saline 1,000 ML 125 ML IV (02:11)
[2022-08-08 02:39] VITALS: BP 136/76; PULSE 77; RESP 16; TEMP 36.8; O2SAT 95
[2022-08-08 05:41] LABS: Absolute Lymphocyte Count 1.49 X10^3/uL (0.83-4.51); Absolute Neutrophil Count 11.4 X10^3/uL (2.0-7.7); Basophil# 0.01 X10^3/uL; Basophil% 0.1 % (0-1); Hematocrit 41.1 % (37-47); Hemoglobin 14.2 g/dL (12.0-15.0); Lymphocyte # 1.49 X10^3/ul (0.83-4.51); Lymphocyte % 11.2 % (19-41); Mean Corp Hgb Conc 34.5 g/dL (32-36); Mean Corpuscular Hgb 29.9 pg (27.0-32.0); Mean Corpuscular Volume 86.5 fL (81-99); Monocyte# 0.37 X10^3/uL; Monocyte% 2.8 % (0-10); NRBC Flagged by Analyzer 0 % (0-5); Neutrophil # 11.35 X10^3/uL (2.7-7.7); Neutrophil % 85.4 % (47-70); Platelet Count 384 K/mm3 (150-450); RBC Distribution Width CV 12.5 % (11.6-14.6); RBC Distribution Width SD 39.4 fl (35.1-43.9); Red Blood Count 4.75 M/mm3 (4.2-5.4); White Blood Count 13.3 K/mm3 (4.4-11.0)
[2022-08-08] MEDS: 0.9% Saline Lock 10 ML Syringe IV (05:56)
[2022-08-08] MEDS: MethylPREDNISolone 125 MG/2 ML Vial 80 MG IV (05:56)
[2022-08-08 06:32] LABS: Anion Gap 8 (5-15); BUN 10 mg/dL (7-18); BUN/Creat Ratio 13.8 RATIO (10-20); Chloride 111 mmol/L (98-107); Creatinine, Serum 0.72 mg/dL (0.55-1.02); EST Glomerular Filtration Rate 90 mL/min (>60); Est Glom Filt Rate - Afr Amer 109 mL/min (>60); Estimated Creatinine Clearance 80.72 ml/min; Glucose 154 mg/dL (74-106); Potassium 3.9 mmol/L (3.5-5.1); Sodium Level 142 mmol/L (136-145)
--- NOTE | 2022-08-08 07:47 | PN.HOSP_ITS ---
Subjective Subjective Patient underwent colonoscopy today prior results are as below - Preparation of the colon was poor. - One 5 mm polyp in the ascending colon, removed with a hot snare.? Resected and ?retrieved. - Stricture in the terminal ileum.? Biopsied. Urine cultures came back positive for Klebsiella oxytoca. Patient will be assessed for possible Objective Data Objective Data Vital Signs: Vital Signs Temp Pulse Resp BP Pulse Ox O2 Del Method 98.2 F 77 16 136/76 H 95 Room Air 08/08/22 02:39 08/08/22 02:39 08/08/22 02:39 08/08/22 02:39 08/08/22 02:39 08/08/22 02:39 Oxygen Delivery Method Room Air Weight: 100.6 kg Body Mass Index (BMI) 37.0 Intake & Output: Intake and Output for Last 24 Hours 08/06/22 08/07/22 08/08/22 23:59 23:59 23:59 Intake Total 1965. / 1965.67 2590.75 / 2590.75 981.25 / 981.25 Output Total Balance / 1965. 2590.75 / 2590.75 966.25 / 966.25 Lab / Micro Data Result Diagrams: 08/08/22 05:20 08/08/22 05:20 Labs: Laboratory Results - last 24 hr 08/07/22 05:05: Hemoglobin A1c 5.3 08/08/22 05:20: WBC 13.3 H, RBC 4.75, Hgb 14.2, Hct 41.1, MCV 86.5, MCH 29.9, MCHC 34.5, RDW Std Deviation 39.4, RDW Coeff of Amando 12.5, Plt Count 384, MPV 10.0, Immature Gran % (Auto) 0.500, Neut % (Auto) 85.4 H, Lymph % (Auto) 11.2 L, [place] % (Auto) 2.8, Eos % (Auto) 0.0, Baso % (Auto) 0.1, Absolute Neuts (auto) 11.4 H, Absolute Lymphs (auto) 1.49, Nucleated RBC % 0 08/08/22 05:20: Sodium 142, Potassium 3.9, Chloride 111 H, Carbon Dioxide 23.0, Anion Gap 8, BUN 10, Creatinine 0.72, Estim Creat Clear Calc 80.72, Est GFR (MDRD) Af Amer 109, Est GFR (MDRD) Non-Af 90, BUN/Creatinine Ratio 13.8, Glucose 154 H, Calcium 9.0 Micro: Microbiology 08/06/22 08:36 Urine, Clean Catch Urine 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 SKIN: No Rash PSYCH; Flat affect Assessment & Plan Assessment/Plan (1) Thickened small bowel: (2) Abdominal pain: PLAN: Plan Patient is a 52-year-old lady presented with abdominal pain imaging studies demonstrated inflammation involving the terminal ileum 1. Terminal ileitis ? Differential diagnosis include inflammatory bowel disease versus infection. Patient has been admitted to regular nursing floor managed with systemic steroid Solu-Medrol, IV fluids pain meds as well as antinausea medication. Consult was placed to Dr. Miller. As part of patient's evaluation requested for CRP as well as ESR, vitamin D D and B12 level ? 08/07/2022; patient to undergo endoscopic evaluation by Dr. Miller -08/08/2022 patient underwent colonoscopy today prior results are as below - Preparation of the colon was poor. - One 5 mm polyp in the ascending colon, removed with a hot snare.? Resected and ?retrieved. - Stricture in the terminal ileum.? Biopsied. Patient to follow-up with Dr. Miller as outpatient 2. Acute cystitis ? Patient started on Rocephin cultures sent. Plan is to either continue with current antibiotic therapy or adjust accordingly. We will follow-up on culture result ? 08/07/2022 culture sent on admission results pending -08/08/2022 urine cultures came back positive for Klebsiella oxytoca. Discharged home on appropriate antibiotic therapy 3. Dyslipidemia ? Patient is on rosuvastatin did continue requested for lipid panel in a.m. 4. Class II obesity with BMI of 38 ? Weight loss advised 5. DVT prophylaxis ? Low risk encourage early ambulation 6. Hyperglycemia ? Secondary to patient being on Dextrose however did request for hemoglobin A1c ? Hemoglobin A1c came back at 5.4 not consistent with diabetes Charges/Coding Visit Charges Inpatient E&M: 23590 Subs Hosp L2
[2022-08-08 08:15] VITALS: BP 133/74; PULSE 71; RESP 15; TEMP 36.7; O2SAT 100
--- NOTE | 2022-08-08 09:23 | DS.PCM_ITS ---
Providers Date of Admission: 08/07/22 Date of Discharge: 08/08/22 Primary Care Physician: Dr. Jevon Woodard MD Consultations 08/06/22 11:16 Consult: Gastroenterology Routine Consulting Provider: [facility] Reason for Consult: Terminal ileitis EMERGENT Consult: No Notified: Yes Date Notified: 08/06/22 Time Notified: 11:16 Method of Notification: ED Physician Initiated Reason For Visit: ABDOMINAL PAIN Diagnosis Discharge Diagnosis (1) Thickened small bowel: Status: Acute Code(s): K63.9 - Disease of intestine, unspecified (2) Abdominal pain: Status: Acute Code(s): R10.9 - Unspecified abdominal pain Plan Patient is a 52-year-old lady presented with abdominal pain imaging studies demonstrated inflammation involving the terminal ileum 1. Terminal ileitis ? Differential diagnosis include inflammatory bowel disease versus infection. Patient has been admitted to regular nursing floor managed with systemic steroid Solu-Medrol, IV fluids pain meds as well as antinausea medication. Consult was placed to Dr. Miller. As part of patient's evaluation requested for CRP as well as ESR, vitamin D D and B12 level ? 08/07/2022; patient to undergo endoscopic evaluation by Dr. Miller -08/08/2022 patient underwent colonoscopy today prior results are as below - Preparation of the colon was poor. - One 5 mm polyp in the ascending colon, removed with a hot snare.? Resected and ?retrieved. - Stricture in the terminal ileum.? Biopsied. Patient to follow-up with Dr. Miller as outpatient 2. Acute cystitis ? Patient started on Rocephin cultures sent. Plan is to either continue with current antibiotic therapy or adjust accordingly. We will follow-up on culture result ? 08/07/2022 culture sent on admission results pending -08/08/2022 urine cultures came back positive for Klebsiella oxytoca. Discharged home on appropriate antibiotic therapy 3. Dyslipidemia ? Patient is on rosuvastatin did continue requested for lipid panel in a.m. 4. Class II obesity with BMI of 38 ? Weight loss advised 5. DVT prophylaxis ? Low risk encourage early ambulation 6. Hyperglycemia ? Secondary to patient being on Dextrose however did request for hemoglobin A1c ? Hemoglobin A1c came back at 5.4 not consistent with diabetes Medications at Discharge Home Medications jhqmqzbcuj-vghqklzzfjlmg-kiwctimw 50 mg-325 mg-40 mg tablet 1 tab PO Q4H PRN PRN MIGRAINES 12/12/16 Plexus 1 pkt PO DAILY weight loss 12/31/18 Plexus Mediaburn 2 cap PO DAILY weight loss 12/31/18 rosuvastatin 5 mg tablet (Crestor) 5 mg PO QHS cholesterol 08/06/22 cefdinir 300 mg capsule 300 mg PO BID #10 caps 08/08/22 Hospital Course Summary of Care Provided Minutes Spent on Discharge: 35 Physical Exam Narrative GENERAL: cooperative HEENT: Atraumatic; normocephalic EYES; Anicteric, Normal Conjunctiva NECK; supple, normal thyroid, RESPIRATORY: Diminished to auscultation CARDIOVASCULAR: Regular S1 S2, GI: soft, normoactive bowel sounds, : No Renal angle tenderness; EXTREMITIES: No edema, no clubbing, MUSCULOSKELETAL: no muscle wasting NEURO: Awake; no lateralizing signs. SKIN: No Rash PSYCH; Flat affect Weight / BMI Weight Weight: 100.6 kg Body Mass Index (BMI) 37.0 ABG / Lab / Microbiology Data Result Diagrams: 08/08/22 05:20 08/08/22 05:20 Laboratory: Laboratory Results - last 24 hr 08/07/22 05:05: Hemoglobin A1c 5.3 08/08/22 05:20: WBC 13.3 H, RBC 4.75, Hgb 14.2, Hct 41.1, MCV 86.5, MCH 29.9, MCHC 34.5, RDW Std Deviation 39.4, RDW Coeff of Amando 12.5, Plt Count 384, MPV 10.0, Immature Gran % (Auto) 0.500, Neut % (Auto) 85.4 H, Lymph % (Auto) 11.2 L, [place] % (Auto) 2.8, Eos % (Auto) 0.0, Baso % (Auto) 0.1, Absolute Neuts (auto) 11.4 H, Absolute Lymphs (auto) 1.49, Nucleated RBC % 0 08/08/22 05:20: Sodium 142, Potassium 3.9, Chloride 111 H, Carbon Dioxide 23.0, Anion Gap 8, BUN 10, Creatinine 0.72, Estim Creat Clear Calc 80.72, Est GFR (MDRD) Af Amer 109, Est GFR (MDRD) Non-Af 90, BUN/Creatinine Ratio 13.8, Glucose 154 H, Calcium 9.0 Microbiology: Microbiology 08/06/22 08:36 Urine, Clean Catch Urine Culture - Final Klebsiella oxytoca D/C Instructions Discharge Diet: No restrictions Discharge Activity: Return to Normal Activity Call your doctor if you observe: Fever of 101 or Higher, Shortness of breath, Fainting spells and Chest pain Meaningful Use Info Meaningful Use Diagnoses (Choose all that apply): None applicable Discharge Plan Admission Admit Date/Time: 08/07/22 16:00 Attending Provider: Maxwell Luz Primary Care Provider: Jevon Woodard Discharge Orders/Prescriptions Prescriptions: New cefdinir 300 mg capsule 300 mg PO BID Qty: 10 0RF Continued nkavtsrhix-tthryzipxlaeu-kycv 1 TABLET tablet 1 tab PO Q4H PRN PRN (Reason: MIGRAINES) Plexus 1 pkt PO DAILY Plexus Mediaburn 2 cap PO DAILY rosuvastatin [Crestor] 5 mg Tablet 5 mg PO QHS Referrals / Follow Up: Jevon Woodard MD [Primary Care Provider] - Care Physician,No Primary [Non-Staff] - Disposition Disposition (needs filled in before D/C Order can be placed): Home, Self Care Charges/Coding Visit Charges Inpatient E&M: 24622 Disch Hosp
[2022-08-08] MEDS: Ceftriaxone 1 GM/50 ML BAG IV (10:01)
[2022-08-08] MEDS: Acetaminophen/Butalbital/Caffe 1 Tablet PO (10:04)
--- NOTE | 2022-08-08 10:08 | CASEMGMT ---
SONI JEFF Assessment: Face to Face with pt for initial transition planning/care coordination assessment. RN RANDEE introduced self and role at [facility], pt voices understanding and consents to assessment. Pt is A/O x4 and answers all questions appropriately at this time. Pt sitting up in bed in no distress. Care providers, pharmacy, and demographics verified/updated. 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 LNOK: Ricardo Rodney, ; Prema Marquez, mother Living Arrangements: Pt lives with and two children in a two story house with 10 steps to enter. Pt reports she is I in ADL's and denies concerns at home. Transportation: Pt drives self and denies concerns with transportation. DME/HHC/SNF: Pt denies having any DME in the home, previous HHC or SNF stays. Pt states no concerns with going home at time of dc. Pt states no further concerns/needs. CM to follow. Advised pt to ask CM if any further question/concerns/needs arise, voices understanding. Pt Goal: Home Plan: Home
--- NOTE | 2022-08-08 10:25 | PHA.DC.MC ---
Pharmacy Service has performed discharge medication reconciliation and counseling for this patient. 1. CEFDINIR 300MG PO BID X 5 DAYS The patient's discharge medication list was reviewed for discrepancies and discrepancies were resolved. Home Medications lhlkugctxf-hdtjdxeuulhnb-vgbkdgsk 50 mg-325 mg-40 mg tablet 1 tab PO Q4H PRN PRN MIGRAINES 12/12/16 Plexus 1 pkt PO DAILY weight loss 12/31/18 Plexus Mediaburn 2 cap PO DAILY weight loss 12/31/18 rosuvastatin 5 mg tablet (Crestor) 5 mg PO QHS cholesterol 08/06/22 cefdinir 300 mg capsule 300 mg PO BID #10 caps 08/08/22 The patient was counseled on the following discharge medications and changes in medications for homegoing were reviewed. The Reason for Use, instructions for use, and potential side effects were reviewed for all new medications. The patient's questions regarding all of their medications were answered. The patient was able to verbally demonstrate an understanding of their discharge medications.
--- NOTE | 2022-08-08 13:42 | PN_ITS ---
Subjective Subjective She underwent colonoscopy yesterday. 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 The stricture did not appear to be secondary to inflammatory bowel disease. Biopsies were taken. She is tolerating a diet this morning and wants to go home. Objective Data Objective Data Vital Signs: Vital Signs Temp Pulse Resp BP Pulse Ox O2 Del Method 98.0 F 71 15 133/74 H 100 Room Air 08/08/22 08:15 08/08/22 08:15 08/08/22 08:15 08/08/22 08:15 08/08/22 08:15 08/08/22 08:15 Oxygen Delivery Method Room Air Weight: 221 lb 12.56 oz Body Mass Index (BMI) 37.0 Intake & Output: Intake and Output for Last 24 Hours 08/06/22 08/07/22 08/08/22 23:59 23:59 23:59 Intake Total 1965. / 1965. 2590.75 / 2590.75 / Output Total Balance 1965.67 / 1965. 2590.75 / 2590.75 Lab / Micro Data Result Diagrams: 08/08/22 05:20 08/08/22 05:20 Labs: Laboratory Results - last 24 hr 08/08/22 05:20: WBC 13.3 H, RBC 4.75, Hgb 14.2, Hct 41.1, MCV 86.5, MCH 29.9, MCHC 34.5, RDW Std Deviation 39.4, RDW Coeff of Amando 12.5, Plt Count 384, MPV 10.0, Immature Gran % (Auto) 0.500, Neut % (Auto) 85.4 H, Lymph % (Auto) 11.2 L, [place] % (Auto) 2.8, Eos % (Auto) 0.0, Baso % (Auto) 0.1, Absolute Neuts (auto) 11.4 H, Absolute Lymphs (auto) 1.49, Nucleated RBC % 0 08/08/22 05:20: Sodium 142, Potassium 3.9, Chloride 111 H, Carbon Dioxide 23.0, Anion Gap 8, BUN 10, Creatinine 0.72, Estim Creat Clear Calc 80.72, Est GFR (MDRD) Af Amer 109, Est GFR (MDRD) Non-Af 90, BUN/Creatinine Ratio 13.8, Glucose 154 H, Calcium 9.0 Micro: Microbiology 08/06/22 08:36 Urine, Clean Catch Urine Culture - Final Klebsiella oxytoca Physical Exam Narrative GENERAL: cooperative HEENT: Atraumatic; normocephalic EYES; Anicteric, Normal Conjunctiva NECK; supple, normal thyroid, RESPIRATORY: Diminished to auscultation CARDIOVASCULAR: Regular S1 S2, GI: soft, normoactive bowel sounds, : No Renal angle tenderness; EXTREMITIES: No edema, no clubbing, MUSCULOSKELETAL: no muscle wasting NEURO: Awake; no lateralizing signs. SKIN: No Rash PSYCH; Flat affect Assessment & Plan Assessment/Plan (1) Abdominal pain: PLAN: Abdominal pain is likely multifactorial. I suspect it is secondary to underlying psychiatric disorder. For follow-up. (2) Thickened small bowel: PLAN: The differential diagnosis for the thickened small bowel in the level of the terminal ileum is inflammatory bowel disease, in particular Crohn's disease. Also diagnosis would be appreciated syndrome, infectious colitis secondary to Yersinia. We took a lot of biopsies. Rest of work-up can be as an outpatient which she will need a small bowel follow-through and a capsule endoscopy. Charges/Coding Visit Charges Inpatient E&M: 32768 Subs Hosp L2
[2022-08-08 15:42] LABS: Vitamin D 1,25-Dihydroxy 55.4 pg/mL (24.8-81.5)
== END 2022-08-08 11:23 | disposition home or self-care (01) | DRG 386 ==
LOC: ED 10:54 → MS3 11:20
PROVIDERS: Internal Medicine Gastroenterology; Admitting Provider Internal Medicine; Emergency Provider Emergency Medicine; PCP Family Medicine; Visit Provider Internal Medicine
PROC: 0DJD8ZZ Inspection of Lower Intestinal Tract, Via Natural or Artificial Opening Endoscopic (ICD-10-PCS; CPT 45378; principal; 2022-08-07 13:25)
DX: K50.00 Crohn's disease of small intestine without complications (principal); N30.00 Acute cystitis without hematuria; B96.1 Klebsiella pneumoniae [K. pneumoniae] as the cause of diseases classified elsewhere; E78.00 Pure hypercholesterolemia, unspecified; K63.5 Polyp of colon; R73.9 Hyperglycemia, unspecified; Z79.899 Other long term (current) drug therapy; E66.9 Obesity, unspecified; Z68.38 Body mass index [BMI] 38.0-38.9, adult
CPT/HCPCS: 36415; 74177; 80048; 80053; 80076; 81001; 82306; 82607; 82652; 83036; 83605; 83690; 83735; 84443; 85025; 85652; 86140; 87077; 87086; 87088; 87186; 88305; 99251; 99284; J7030; J7120; Q9967; A4216; G0463; J2405; J7799

== ENCOUNTER 2022-10-23 15:31 | Outpatient (CLI) | payer OTHER, SELFPAY ==
[2022-10-23 16:07] LABS: Absolute Lymphocyte Count 3.47 X10^3/uL (0.83-4.51); Basophil# 0.07 X10^3/uL; Basophil% 0.9 % (0-1); Eosinophil# 0.08 X10^3/uL; Hematocrit 41.5 % (37-47); Hemoglobin 14.2 g/dL (12.0-15.0); Lymphocyte # 3.47 X10^3/ul (0.83-4.51); Mean Corp Hgb Conc 34.2 g/dL (32-36); Mean Corpuscular Hgb 29.9 pg (27.0-32.0); Mean Corpuscular Volume 87.4 fL (81-99); Mean Platelet Vol. 9.8 fl (6.2-12.0); Monocyte# 0.44 X10^3/uL; Monocyte% 5.5 % (0-10); NRBC Flagged by Analyzer 0 % (0-5); Neutrophil # 3.99 X10^3/uL (2.7-7.7); Neutrophil % 49.4 % (47-70); Platelet Count 397 K/mm3 (150-450); RBC Distribution Width CV 12.6 % (11.6-14.6); Red Blood Count 4.75 M/mm3 (4.2-5.4); White Blood Count 8.1 K/mm3 (4.4-11.0)
[2022-10-23 16:24] LABS: ALB/GLOB Ratio 1.2 RATIO (0.9-2.4); AST(SGOT) 18 U/L (15-37); Alanine Aminotransfer ALT/SGPT 28 U/L (13-56); Albumin, Serum 3.8 g/dL (3.2-5.0); Alkaline Phosphatase 81 U/L (45-117); Anion Gap 2 (5-15); BUN 14 mg/dL (7-18); BUN/Creat Ratio 17.7 RATIO (10-20); CRP 4.14 mg/L (0.0-3.0); Calcium,Total 9.5 mg/dL (8.5-10.1); Chloride 107 mmol/L (98-107); Creatinine, Serum 0.79 mg/dL (0.55-1.02); EST Glomerular Filtration Rate 82 mL/min (>60); Erythrocyte Sedimentation Rate 4 mm/hr (0-30); Est Glom Filt Rate - Afr Amer 99 mL/min (>60); Globulin 3.2 g/dL (2.2-4.2); Glucose 114 mg/dL (74-106); LDH 172 U/L (84-246); Sodium Level 140 mmol/L (136-145)
[2022-10-28 16:08] LABS: Endomysial Antibody IgA Negative (Negative)
[2022-10-28 19:47] LABS: Immunoglobulin A 146 mg/dL (87-352); t-Transglutaminase IgA <2 U/mL (0-3)
[2022-10-29 12:07] LABS: Anti-Centromere B Ab <0.2 AI (0.0-0.9); Anti-Chromatin <0.2 AI (0.0-0.9); Anti-Jo <0.2 AI (0.0-0.9); Anti-Scleroderma-70 AB <0.2 AI (0.0-0.9); RNP Ab <0.2 AI (0.0-0.9); SJOGREN'S Anti-SS-A test < 0.2 AI (0.0-0.9); SJOGREN'S Anti-SS-B test < 0.2 AI (0.0-0.9); Smith Ab <0.2 AI (0.0-0.9)
[2022-10-29 12:48] LABS: Anti-dsDNA Ab 1 IU/mL (0-9)
[2022-11-01 14:13] LABS: Albumin 3.8 g/dL (2.9-4.4); Alpha-1-Globulins 0.3 g/dL (0.0-0.4); Alpha-2-Globulins 0.7 g/dL (0.4-1.0); Cytoplasmic Ab (C-ANCA) <1:20 titer (Neg:<1:20); Gamma Globulin 0.8 g/dL (0.4-1.8); Immunoglobulin A 138 mg/dL (87-352); Immunoglobulin E 5 IU/mL (6-495); Immunoglobulin G 866 mg/dL (586-1602); Immunoglobulin M 90 mg/dL (26-217); PROEL- TOTAL PROTEIN 6.5 g/dL (6.0-8.5)
[2022-11-02 12:39] LABS: Perinuclear Ab (P-ANCA) <1:20 titer (Neg:<1:20)
== END 2022-10-23 23:59 | disposition home or self-care (01) ==
LOC: LAB 15:34
PROVIDERS: PCP Family Medicine; Visit Provider Internal Medicine Gastroenterology
DX: K63.9 Disease of intestine, unspecified (principal)
CPT/HCPCS: 36415; 80053; 82784; 82785; 83516; 83615; 84165; 85025; 85652; 86140; 86225; 86235; 86255; 86256; 86334

== ENCOUNTER → 2023-02-09 | Outpatient (CLI) | payer OTHER, SELFPAY ==
[2023-02-12 21:16] LABS: Calprotectin, Stool <16 ug/g (0-120)
== END | disposition home or self-care (01) ==
LOC: LABSPEC 11:45
PROVIDERS: PCP Family Medicine; Referring Provider Internal Medicine Gastroenterology; Visit Provider Internal Medicine Gastroenterology
DX: K63.9 Disease of intestine, unspecified (principal)
CPT/HCPCS: 83630; 83993

== ENCOUNTER → 2023-02-11 | Outpatient (CLI) | payer OTHER, SELFPAY ==
[2023-02-11 17:02] LABS: Erythrocyte Sedimentation Rate 2 mm/hr (0-30)
[2023-02-11 17:03] LABS: Hemoglobin A1c 5.2 % (3.8-5.6)
[2023-02-11 17:24] LABS: CRP 4.53 mg/L (0.0-3.0)
== END | disposition home or self-care (01) ==
LOC: LAB 16:14
PROVIDERS: PCP Family Medicine; Referring Provider Internal Medicine Gastroenterology; Visit Provider Internal Medicine Gastroenterology
DX: K63.9 Disease of intestine, unspecified (principal)
CPT/HCPCS: 36415; 83036; 85652; 86140

== ENCOUNTER 2024-10-18 19:58 | Emergency (ER) | payer OTHER, SELFPAY ==
[2024-10-18 19:58] VITALS: BP 147/95; PULSE 84; RESP 16; TEMP 37.1; O2SAT 100; BMI 30.7
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
[2024-10-18] MEDS: Ibuprofen 600 MG Tablet PO (20:56)
[2024-10-18 20:59] VITALS: BP 147/95; PULSE 84; RESP 16; TEMP 37.1; O2SAT 100
== END 2024-10-18 21:00 | disposition home or self-care (01) ==
PROVIDERS: Emergency Provider Emergency Medicine; PCP Family Medicine; Visit Provider Emergency Medicine
DX: S00.03XA Contusion of scalp, initial encounter (principal); E78.00 Pure hypercholesterolemia, unspecified; Y92.481 Parking lot as the place of occurrence of the external cause; R03.0 Elevated blood-pressure reading, without diagnosis of hypertension; S30.811A Abrasion of abdominal wall, initial encounter; V47.0XXA Car driver injured in collision with fixed or stationary object in nontraffic accident, initial encounter; W22.10XA Striking against or struck by unspecified automobile airbag, initial encounter; K21.9 Gastro-esophageal reflux disease without esophagitis; Z79.899 Other long term (current) drug therapy
CPT/HCPCS: 99282